=== PATIENT | female | born 1965 | race Caucasian/White ===

== ENCOUNTER 2016-09-02 15:55 | Emergency (ER) | payer OTHER ==
[2016-09-02] MEDS ORDERED: ONDANSETRON 4 MG ORAL DISINTEGRATING TAB (S0181) As Ordered ONE (18:46)
--- NOTE | 2016-09-02 18:51 | EDDOCDS ---
Nurse's Notes [facility] Name: Lela Spivey Age: 51 yrs Sex: Female : 1965 Arrival Date: 09/02/2016 Time: 15:55 Bed TR7 Private MD: [facility] Diagnosis: Nausea and vomiting;Diarrhea, unspecified Presentation: 09/02 16:05 Presenting complaint: Patient states: vomiting and diarrhea since last night. mid abd srm pain started first. Adult Sepsis Screening: The patient does not have new or worsening altered mentation. Patient's respiratory rate is less than 22. Systolic blood pressure is greater than 100. Patient has a qSOFA score of 0- Negative Sepsis Screen. Suicide/Homicide risk assessment- the patient denies having any suicidal and/or homicidal ideations and does not present with any other emotional, behavioral or mental health complaints. 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 Transition of care: patient was not received from another setting of care. 16:05 Acuity: DHIRAJ Level 3 srm 16:05 Method Of Arrival: Walkin/Carried/Asstd srm Triage Assessment: 16:07 General: Appears in no apparent distress, Behavior is appropriate for age, cooperative. srm Pain: Pain currently is 8 out of 10 on a pain scale. Quality of pain is described as crampy. HIV screening NA for this visit Offered previously. 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 lisinopril 10 mg Oral tab 1 tab once daily 2. simvastatin 20 mg Oral tab 1 tab nightly - PMHx: Hypercholesterolemia; Hypertension; Chronic Back pain; - PSHx: right knee surgery; Hysterectomy; - Social history: Smoking status: Patient states was never smoker of tobacco. No barriers to communication noted, The patient speaks fluent Georgian, Speaks appropriately for age. - Family history: Not pertinent. - : The pt / caregiver states he / she is not on anticoagulants. Home medication list is obtained from the patient. - Exposure Risk Screening:: None identified. Screenin:50 Screening information is obtained from the patient. Fall risk: No risks identified. kr3 Assistance ADL's: requires no assistance with activities of daily living. Abuse/DV Screen: The patient / caregiver reports he/she is: not in a situation that causes fear, pain or injury. Nutritional screening: No deficits noted. Advance Directives: Currently, there is no health care proxy. home support is adequate. Assessment: 18:50 General: Appears in no apparent distress, comfortable, Behavior is cooperative. kr3 Respiratory: Respiratory effort is even, unlabored. Derm: Skin is pink, warm & dry. Vital Signs: 15:57 BP 134 / 83; Pulse 76; Resp 18 S; Temp 96.4(O); Pulse Ox 98% on R/A; Weight 95.25 kg gr2 (R); Height 5 ft. 5 in. (165.10 cm) (R); Pain 8/10; 18:44 BP 156 / 93; Pulse 70; Resp 18; Temp 98.4(TE); Pulse Ox 98% on R/A; Pain 4/10; ar3 15:57 Body Mass Index 34.95 (95.25 kg, 165.10 cm) gr2 Vitals: 15:57 Log In Time: September 02, 2016 at 15:57. gr2 ED Course: 15:56 Patient visited by Aida Durán. gr2 15:56 Patient moved to Waiting gr2 15:57 [facility] is Private Physician. gr2 15:58 Patient visited by Aida Durán. gr2 15:58 Patient moved to Pre RCE gr2 16:06 Triage Initiated srm 18:12 Nena Lang,RN is Primary Nurse. ar3 18:12 Gwen Fitzpatrick,RN is Primary Nurse. ar3 18:12 Patient moved to Triage 3 ar3 18:17 Abilio Osullivan PA is PHCP. btw 18:17 Abdirahman Dupree MD is Attending Physician. btw 18:32 Patient visited by Abilio Osullivan PA. btw 18:42 [facility] is Referral Physician. btw 18:44 Patient visited by Teresa Garcia PCA. ar3 18:49 Patient moved to TR7 ar3 18:50 No IV's were initiated during this patient's visit. No procedures done that require kr3 assistance. 18:51 The patient / caregiver is instructed regarding the plan of care and ED course. Patient kr3 has correct armband on for positive identification. Administered Medications: 18:47 Drug: Ondansetron ODT 4 mg [ondansetron 4 mg disintegrating tablet (1 tabs)] Route: PO; kr3 Order Results: There are currently no results for this order. Outcome: 18:42 Discharge ordered by Provider. btw 18:50 Discharge Assessment: patient administered narcotics - no. The following High Risk kr3 Discharge criteria are identified: None. Discharged to home ambulatory. Condition: stable. Discharge instructions given to patient, Instructed on discharge instructions, follow up and referral plans. medication usage, Demonstrated understanding of instructions, medications, Pt was receptive of discharge instructions/ teaching. Prescriptions given X 1. No special radiology studies were completed. Property sent home with patient. 18:51 Patient left the ED. kr3 Signatures: Liz Lord, RN RN Gwen BlakeRN RN kr3 Teresa Garcia, SPECIAL EDUCATION TEACHING ASSISTANT SPECIAL EDUCATION TEACHING ASSISTANT ar3 Abilio Osullivan, MONISHA PA btw Aida Durán gr2 MTDD
--- NOTE | 2016-09-02 18:51 | EDDOCDS ---
Physician Documentation [facility] Name: Lela Spivey Age: 51 yrs Sex: Female : 1965 Arrival Date: 09/02/2016 Time: 15:55 Bed TR7 Private MD: [facility] Disposition: 09/02/16 18:42 Discharged to Home/Self Care. Impression: Nausea and vomiting, Diarrhea, unspecified. - Condition is Stable. - Discharge Instructions: Viral Gastroenteritis, [id number]. - Prescriptions for ZOFRAN ODT 4 mg - dissolve 1 tablet by ORAL route 4 times per day As needed do not chew, do not swallow whole; 10 tablet. - Medication Reconciliation, Local Pharmacy Hours, Work Release Form - 1 day form. - Follow up: [facility]; When: Call to arrange an appointment; Reason: Further diagnostic work-up, Recheck today's complaints, Continuance of care. - Problem is new. - Symptoms have improved. Historical: - Allergies: SULFA (SULFONAMIDES) (Hives); Percocet (Vomit); - Home Meds: 1. lisinopril 10 mg Oral tab 1 tab once daily 2. simvastatin 20 mg Oral tab 1 tab nightly - PMHx: Hypercholesterolemia; Hypertension; Chronic Back pain; - PSHx: right knee surgery; Hysterectomy; - Social history: Smoking status: Patient states was never smoker of tobacco. No barriers to communication noted, The patient speaks fluent Nauruan, Speaks appropriately for age. - Family history: Not pertinent. - : The pt / caregiver states he / she is not on anticoagulants. Home medication list is obtained from the patient. - Exposure Risk Screening:: None identified. 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 5 in. (165.10 cm) (R); Pain 8/10; 18:44 BP 156 / 93; Pulse 70; Resp 18; Temp 98.4(TE); Pulse Ox 98% on R/A; Pain 4/10; ar3 15:57 Body Mass Index 34.95 (95.25 kg, 165.10 cm) gr2 MDM: 18:42 Ondansetron ODT Oral Disintegrating Tablet 4 mg PO once ordered. btw Administered Medications: 18:47 Drug: Ondansetron ODT 4 mg [ondansetron 4 mg disintegrating tablet (1 tabs)] Route: PO; kr3 Signatures: Liz Lord RN RN srm Gwen Fitzpatrick RN RN kr3 Abilio Osullivan PA PA btw MTDD
--- NOTE | 2016-09-04 19:51 | EDDOCDS ---
Physician Documentation [facility] Name: Lela Spivey Age: 51 yrs Sex: Female : 1965 Arrival Date: 09/02/2016 Time: 15:55 Bed TR7 Private MD: [facility] Disposition: 09/02/16 18:42 Discharged to Home/Self Care. Impression: Nausea and vomiting, Diarrhea, unspecified. - Condition is Stable. - Discharge Instructions: Viral Gastroenteritis, [id number]. - Prescriptions for ZOFRAN ODT 4 mg - dissolve 1 tablet by ORAL route 4 times per day As needed do not chew, do not swallow whole; 10 tablet. - Medication Reconciliation, Local Pharmacy Hours, Work Release Form - 1 day form. - Follow up: [facility]; When: Call to arrange an appointment; Reason: Further diagnostic work-up, Recheck today's complaints, Continuance of care. - Problem is new. - Symptoms have improved. Historical: - Allergies: SULFA (SULFONAMIDES) (Hives); Percocet (Vomit); - Home Meds: 1. lisinopril 10 mg Oral tab 1 tab once daily 2. simvastatin 20 mg Oral tab 1 tab nightly - PMHx: Hypercholesterolemia; Hypertension; Chronic Back pain; - PSHx: right knee surgery; Hysterectomy; - Social history: Smoking status: Patient states was never smoker of tobacco. No barriers to communication noted, The patient speaks fluent Vincentian, Speaks appropriately for age. - Family history: Not pertinent. - : The pt / caregiver states he / she is not on anticoagulants. Home medication list is obtained from the patient. - Exposure Risk Screening:: None identified. 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 5 in. (165.10 cm) (R); Pain 8/10; 18:44 BP 156 / 93; Pulse 70; Resp 18; Temp 98.4(TE); Pulse Ox 98% on R/A; Pain 4/10; ar3 15:57 Body Mass Index 34.95 (95.25 kg, 165.10 cm) gr2 MDM: 18:42 Ondansetron ODT Oral Disintegrating Tablet 4 mg PO once ordered. btw 18:56 [facility] Payment Agreement was scanned into [employer] and attached to record. gjb 18:56 Financial registration complete. [facility] 09/03 10:19 T-Sheet-- Draft Copy was scanned into [employer] and attached to record. gb Administered Medications: 09/02 18:47 Drug: Ondansetron ODT 4 mg [ondansetron 4 mg disintegrating tablet (1 tabs)] Route: PO; kr3 Signatures: Liz Lord, RN RN srm Ambreen Moran, Gwen Tobin RN RN kr3 Abilio Osullivan PA PA btw Ashleigh Parker The chart was reviewed and I authenticate all verbal orders and agree with the evaluation and treatment provided.Attachments: 18:56 [facility] Payment Agreement [facility] 09/03 10:19 T-Sheet-- Draft Copy gb Chart Complete MTDD
--- NOTE | 2016-09-04 19:51 | EDDOCDS ---
Nurse's Notes [facility] Name: Lela Spivey Age: 51 yrs Sex: Female : 1965 Arrival Date: 09/02/2016 Time: 15:55 Bed TR7 Private MD: [facility] Diagnosis: Nausea and vomiting;Diarrhea, unspecified Presentation: 09/02 16:05 Presenting complaint: Patient states: vomiting and diarrhea since last night. mid abd srm pain started first. Adult Sepsis Screening: The patient does not have new or worsening altered mentation. Patient's respiratory rate is less than 22. Systolic blood pressure is greater than 100. Patient has a qSOFA score of 0- Negative Sepsis Screen. Suicide/Homicide risk assessment- the patient denies having any suicidal and/or homicidal ideations and does not present with any other emotional, behavioral or mental health complaints. 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 Transition of care: patient was not received from another setting of care. 16:05 Acuity: DHIRAJ Level 3 srm 16:05 Method Of Arrival: Walkin/Carried/Asstd srm Triage Assessment: 16:07 General: Appears in no apparent distress, Behavior is appropriate for age, cooperative. srm Pain: Pain currently is 8 out of 10 on a pain scale. Quality of pain is described as crampy. HIV screening NA for this visit Offered previously. 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 lisinopril 10 mg Oral tab 1 tab once daily 2. simvastatin 20 mg Oral tab 1 tab nightly - PMHx: Hypercholesterolemia; Hypertension; Chronic Back pain; - PSHx: right knee surgery; Hysterectomy; - Social history: Smoking status: Patient states was never smoker of tobacco. No barriers to communication noted, The patient speaks fluent Paraguayan, Speaks appropriately for age. - Family history: Not pertinent. - : The pt / caregiver states he / she is not on anticoagulants. Home medication list is obtained from the patient. - Exposure Risk Screening:: None identified. Screenin:50 Screening information is obtained from the patient. Fall risk: No risks identified. kr3 Assistance ADL's: requires no assistance with activities of daily living. Abuse/DV Screen: The patient / caregiver reports he/she is: not in a situation that causes fear, pain or injury. Nutritional screening: No deficits noted. Advance Directives: Currently, there is no health care proxy. home support is adequate. Assessment: 18:50 General: Appears in no apparent distress, comfortable, Behavior is cooperative. kr3 Respiratory: Respiratory effort is even, unlabored. Derm: Skin is pink, warm & dry. Vital Signs: 15:57 BP 134 / 83; Pulse 76; Resp 18 S; Temp 96.4(O); Pulse Ox 98% on R/A; Weight 95.25 kg gr2 (R); Height 5 ft. 5 in. (165.10 cm) (R); Pain 8/10; 18:44 BP 156 / 93; Pulse 70; Resp 18; Temp 98.4(TE); Pulse Ox 98% on R/A; Pain 4/10; ar3 15:57 Body Mass Index 34.95 (95.25 kg, 165.10 cm) gr2 Vitals: 15:57 Log In Time: September 02, 2016 at 15:57. gr2 ED Course: 15:56 Patient visited by Aida Durán. gr2 15:56 Patient moved to Waiting gr2 15:57 [facility] is Private Physician. gr2 15:58 Patient visited by Aida Durán. gr2 15:58 Patient moved to Pre RCE gr2 16:06 Triage Initiated srm 18:12 Nena Lang,RN is Primary Nurse. ar3 18:12 Gwen Fitzpatrick,RN is Primary Nurse. ar3 18:12 Patient moved to Triage 3 ar3 18:17 Abilio Osullivan PA is PHCP. btw 18:17 Abdirahman Dupree MD is Attending Physician. btw 18:32 Patient visited by Abilio Osullivan PA. btw 18:42 [facility] is Referral Physician. btw 18:44 Patient visited by Teresa Garcia PCA. ar3 18:49 Patient moved to TR7 ar3 18:50 No IV's were initiated during this patient's visit. No procedures done that require kr3 assistance. 18:51 The patient / caregiver is instructed regarding the plan of care and ED course. Patient kr3 has correct armband on for positive identification. 18:56 [facility] Payment Agreement was scanned into [employer] and attached to record. lizzie 09/03 10:19 T-Sheet-- Draft Copy was scanned into [employer] and attached to record. gb Administered Medications: 09/02 18:47 Drug: Ondansetron ODT 4 mg [ondansetron 4 mg disintegrating tablet (1 tabs)] Route: PO; kr3 Order Results: There are currently no results for this order. Outcome: 18:42 Discharge ordered by Provider. btw 18:50 Discharge Assessment: patient administered narcotics - no. The following High Risk kr3 Discharge criteria are identified: None. Discharged to home ambulatory. Condition: stable. Discharge instructions given to patient, Instructed on discharge instructions, follow up and referral plans. medication usage, Demonstrated understanding of instructions, medications, Pt was receptive of discharge instructions/ teaching. Prescriptions given X 1. No special radiology studies were completed. Property sent home with patient. 18:51 Patient left the ED. kr3 Signatures: Liz Lord, RN RN [facility] Ambreen Moran, Reg Reg gb Gwen Fitzpatrick RN RN kr3 Teresa Garcia, CHAMPAGNE MAKER CHAMPAGNE MAKER ar3 Abilio Osullivan, MONISHA PA btw Aida Durán gr2 Ashleigh Parker [facility] Chart Complete MTDD
--- NOTE | 2016-09-04 19:51 | EDDOCDS ---
Physician Documentation [facility] Name: Lela Spivey Age: 51 yrs Sex: Female : 1965 Arrival Date: 09/02/2016 Time: 15:55 Bed TR7 Private MD: [facility] Disposition: 09/02/16 18:42 Discharged to Home/Self Care. Impression: Nausea and vomiting, Diarrhea, unspecified. - Condition is Stable. - Discharge Instructions: Viral Gastroenteritis, [id number]. - Prescriptions for ZOFRAN ODT 4 mg - dissolve 1 tablet by ORAL route 4 times per day As needed do not chew, do not swallow whole; 10 tablet. - Medication Reconciliation, Local Pharmacy Hours, Work Release Form - 1 day form. - Follow up: [facility]; When: Call to arrange an appointment; Reason: Further diagnostic work-up, Recheck today's complaints, Continuance of care. - Problem is new. - Symptoms have improved. Historical: - Allergies: SULFA (SULFONAMIDES) (Hives); Percocet (Vomit); - Home Meds: 1. lisinopril 10 mg Oral tab 1 tab once daily 2. simvastatin 20 mg Oral tab 1 tab nightly - PMHx: Hypercholesterolemia; Hypertension; Chronic Back pain; - PSHx: right knee surgery; Hysterectomy; - Social history: Smoking status: Patient states was never smoker of tobacco. No barriers to communication noted, The patient speaks fluent Ugandan, Speaks appropriately for age. - Family history: Not pertinent. - : The pt / caregiver states he / she is not on anticoagulants. Home medication list is obtained from the patient. - Exposure Risk Screening:: None identified. 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 5 in. (165.10 cm) (R); Pain 8/10; 18:44 BP 156 / 93; Pulse 70; Resp 18; Temp 98.4(TE); Pulse Ox 98% on R/A; Pain 4/10; ar3 15:57 Body Mass Index 34.95 (95.25 kg, 165.10 cm) gr2 MDM: 18:42 Ondansetron ODT Oral Disintegrating Tablet 4 mg PO once ordered. btw 18:56 [facility] Payment Agreement was scanned into [employer] and attached to record. gjb 18:56 Financial registration complete. [facility] 09/03 10:19 T-Sheet-- Draft Copy was scanned into [employer] and attached to record. gb Administered Medications: 09/02 18:47 Drug: Ondansetron ODT 4 mg [ondansetron 4 mg disintegrating tablet (1 tabs)] Route: PO; kr3 Signatures: Liz Lord, RN RN srm Ambreen Moran, Gwen Tobin RN RN kr3 Abilio Osullivan PA PA btw Ashleigh Parker The chart was reviewed and I authenticate all verbal orders and agree with the evaluation and treatment provided.Attachments: 18:56 [facility] Payment Agreement [facility] 09/03 10:19 T-Sheet-- Draft Copy gb Chart Complete MTDD
== END 2016-09-02 18:51 | disposition home or self-care (01) ==
LOC: M ED 15:55
DX: R11.2 Nausea with vomiting, unspecified (principal); R19.7 Diarrhea, unspecified; I10 Essential (primary) hypertension; M54.9 Dorsalgia, unspecified; E78.00 Pure hypercholesterolemia, unspecified; Z79.899 Other long term (current) drug therapy; Z88.2 Allergy status to sulfonamides; Z88.5 Allergy status to narcotic agent

== ENCOUNTER → 2016-10-21 | Outpatient (CLI) | payer OTHER ==
--- NOTE | 2016-10-21 10:58 | REP ---
Cervical spine eight views: Vertebral body heights, interspacing alignment are normal. The prevertebral soft tissues are normal. There is no listhesis on flexion or extension. The facets are normally aligned. There is no bony foraminal encroachment. The odontoid view is unremarkable. Impression: Essentially negative plain film study of the cervical spine. Signed by Perez Pelaez MD 10/21/2016 10:49 A
--- NOTE | 2016-10-21 10:59 | REP ---
Lumbar spine five views: There are no comparisons. Vertebral body heights and alignment are normal. There is moderate degenerative disc disease at every lumbar level. The facets and pedicles are unremarkable. Sacroiliac articulations are unremarkable. Impression: Multilevel moderate degenerative disc disease. Signed by Perez Pelaez MD 10/21/2016 10:50 A
== END ==
LOC: M WUC 10:06
PROVIDERS: ATTEND Physician Assistant
DX: M51.35 Other intervertebral disc degeneration, thoracolumbar region (principal); M51.36 Other intervertebral disc degeneration, lumbar region; M51.37 Other intervertebral disc degeneration, lumbosacral region

== ENCOUNTER → 2017-04-08 | Outpatient (CLI) | payer OTHER ==
[2017-04-08 15:31] LABS: ALBUMIN 3.4 GM/DL (3.2-5.2); ALBUMIN/GLOBULIN RATIO 0.97 (1.00-1.93); ALKALINE PHOSPHATASE 114 U/L (45-117); ALT/SGPT 50 U/L (12-78); ANION GAP 7 MEQ/L (8-16); AST/SGOT 20 U/L (15-37); BILIRUBIN,TOTAL 0.7 MG/DL (0.2-1.0); BLOOD UREA NITROGEN 13 MG/DL (7-18); CALCIUM LEVEL 8.5 MG/DL (8.5-10.1); CARBON DIOXIDE LEVEL 28 MEQ/L (21-32); CHLORIDE LEVEL 104 MEQ/L (98-107); CHOLESTEROL LEVEL 158 MG/DL (<200); CREATININE FOR GFR 0.51 MG/DL (0.55-1.02); GLOMERULAR FILTRATION RATE > 60.0 (>51); GLUCOSE, FASTING 270 MG/DL (70-105); POTASSIUM SERUM 4.1 MEQ/L (3.5-5.1); SODIUM LEVEL 139 MEQ/L (136-145); TOTAL PROTEIN 6.9 GM/DL (6.4-8.2); TRIGLYCERIDES LEVEL 134 MG/DL (<150)
[2017-04-08 18:22] LABS: BASO % 0.5 % (0.0-1.0); EOS # 0.2 K/mm3 (0.0-0.50); EOS % 3.4 % (0.0-3.0); LARGE UNSTAINED CELL # 0.2 K/mm3 (0.0-0.4); LARGE UNSTAINED CELL % 2.2 % (0.0-4.0); LYMPH # 2.5 K/mm3 (1.5-4.5); LYMPH % 34.3 % (24.0-44.0); MEAN CORPUSCULAR HEMOGLOBIN 32.7 pg (27.0-33.0); MEAN CORPUSCULAR HGB CONC 36.4 g/dl (32.0-36.5); MEAN CORPUSCULAR VOLUME 89.8 fl (80.0-96.0); MONO # 0.3 K/mm3 (0.0-0.8); MONO % 4.3 % (0.0-5.0); NEUTROPHILS % 55.2 % (36.0-66.0); PLATELET COUNT, AUTOMATED 237 k/mm3 (150-450); WHITE BLOOD COUNT 7.2 K/mm3 (4.0-10.0)
== END ==
LOC: M LAB 12:21
PROVIDERS: ATTEND Physician Assistant Medical
DX: I10 Essential (primary) hypertension (principal); E78.5 Hyperlipidemia, unspecified; Z83.3 Family history of diabetes mellitus

== ENCOUNTER 2017-08-30 23:25 | Emergency (ER) | payer OTHER ==
[2017-08-31] MEDS: NORCO, ANEXSIA 5/325MG TABLET (HYDROcodone/ACETAMINOPHEN) PO (01:08)
[2017-08-31] MEDS: METHOCARBAMOL 500 MG TAB PO (01:08)
[2017-08-31] MEDS: IBUPROFEN 800 MG TAB PO (01:08)
== END 2017-08-31 01:29 | disposition home or self-care (01) ==
LOC: M ED 23:25
DX: S76.311A Strain of muscle, fascia and tendon of the posterior muscle group at thigh level, right thigh, initial encounter (principal); X50.9XXA Other and unspecified overexertion or strenuous movements or postures, initial encounter; Y92.59 Other trade areas as the place of occurrence of the external cause; Y99.0 Civilian activity done for income or pay; I10 Essential (primary) hypertension; E78.9 Disorder of lipoprotein metabolism, unspecified; K21.9 Gastro-esophageal reflux disease without esophagitis; Z88.1 Allergy status to other antibiotic agents; Z88.2 Allergy status to sulfonamides; Z79.899 Other long term (current) drug therapy; Z98.890 Other specified postprocedural states
CPT/HCPCS: 99282

== ENCOUNTER 2018-01-07 08:06 | Emergency (ER) | payer SELFPAY, OTHER ==
[2018-01-07] MEDS: KETOROLAC 60 MG/2 ML VIAL (J1885) IM (08:37)
[2018-01-07] MEDS: METHOCARBAMOL 500 MG TAB PO (08:37)
== END 2018-01-07 09:12 | disposition home or self-care (01) ==
LOC: M ED 08:06
DX: M62.830 Muscle spasm of back (principal); M54.30 Sciatica, unspecified side; I10 Essential (primary) hypertension; J45.909 Unspecified asthma, uncomplicated; K21.9 Gastro-esophageal reflux disease without esophagitis; Z79.899 Other long term (current) drug therapy; Z88.5 Allergy status to narcotic agent; Z88.2 Allergy status to sulfonamides
CPT/HCPCS: J1885

== ENCOUNTER 2018-04-22 09:39 | Emergency (ER) | payer SELFPAY, OTHER ==
[2018-04-22] MEDS: NORCO, ANEXSIA 5/325MG TABLET (HYDROcodone/ACETAMINOPHEN) PO (10:57)
== END 2018-04-22 12:07 | disposition home or self-care (01) ==
LOC: M ED 09:39
DX: S76.111A Strain of right quadriceps muscle, fascia and tendon, initial encounter (principal); X58.XXXA Exposure to other specified factors, initial encounter; Y92.89 Other specified places as the place of occurrence of the external cause; I10 Essential (primary) hypertension; E78.5 Hyperlipidemia, unspecified; Z79.899 Other long term (current) drug therapy; Z88.1 Allergy status to other antibiotic agents; Z88.2 Allergy status to sulfonamides; Z88.5 Allergy status to narcotic agent
CPT/HCPCS: 93971

== ENCOUNTER 2018-07-17 21:22 | Emergency (ER) | payer BC, SELFPAY ==
[~2018-07-17] VITALS: Ht 165.1 cm; Wt 90.9 kg
[~2018-07-17 21:22] MED LIST: AMLO5TAB6 PO; CYCL5TAB PO; ESOM1CAP5 PO; LISI-542 PO; LISI2.5T76 GT; NAPR-885 PO; NEXI10GR PO; NORCOTAB PO; SIMV20TA2 PO; SIMV40TA2 PO; VENTAER INH
[2018-07-17] MEDS ORDERED: LABETALOL HCL 100 MG/20 ML VIAL IV STA (21:47)
[2018-07-17] MEDS ORDERED: NS 1,000 ML IV SCH (21:47)
[2018-07-17] MEDS ORDERED: hydroCHLOROthiazide 12.5 MG CAPSULE PO ONE (22:00)
--- NOTE | 2018-07-17 22:10 | REPVR ---
EXAM: CT Head Without Contrast EXAM DATE/TIME: 07/17/2018 9:56 PM CLINICAL HISTORY: 53 years old, female; Signs and symptoms; Other: CVA; Additional info: CVA - nursing interventions must not delay CT TECHNIQUE: Axial computed tomography images of the head/brain without contrast. All CT scans at this facility use at least one of these dose optimization techniques: automated exposure control; mA and/or kV adjustment per patient size (includes targeted exams where dose is matched to clinical indication); or iterative reconstruction. STROKE PROTOCOL was implemented. COMPARISON: No relevant prior studies available. FINDINGS: Brain: No acute intracranial hemorrhage. No CT evidence of acute cortical infarct. No intracranial mass or midline shift. Ventricles, cisterns, and sulci are normal in size for age. Bones/joints: No calvarial fracture or destructive process. Sinuses: Mucosal thickening or fluid is present diffusely in the paranasal sinuses. Mastoid air cells: Mastoid air cells are normally aerated. Orbits: Imaged orbits are unremarkable. Soft tissues: No focal extracranial soft tissue swelling. IMPRESSION: No acute or concerning focal intracranial abnormality. Electronically signed by: Taran Isaac On 07/17/2018 22:10:22 PM
--- NOTE | 2018-07-17 22:26 | REPVR ---
EXAM: CT Maxillofacial Without Contrast EXAM DATE/TIME: 07/17/2018 9:56 PM CLINICAL HISTORY: 53 years old, female; Signs and symptoms; Other: CVA; Additional info: CVA - nursing interventions must not delay CT TECHNIQUE: Axial computed tomography images of the face without intravenous contrast. All CT scans at this facility use at least one of these dose optimization techniques: automated exposure control; mA and/or kV adjustment per patient size (includes targeted exams where dose is matched to clinical indication); or iterative reconstruction. Coronal and sagittal reformatted images were created and reviewed. COMPARISON: No relevant prior studies available. FINDINGS: Ostiomeatal complexes are bilaterally occluded or obscured by mucosal thickening. Mucosal thickening and fluid is present diffusely in the paranasal sinuses. Air-fluid levels are present in the maxillary sinuses. No bony sclerosis present to indicate chronic sinusitis. Nasal septum shows no marked spurring. No jodi bullosa deformity. No soft tissue asymmetry of the posterior nasopharynx. No bony destructive process. IMPRESSION: Diffuse opacification of the paranasal sinuses, suggesting inflammatory sinusitis. No osseous destruction or evidence of overlying facial cellulitis or abscess. Electronically signed by: Taran Isaac On 07/17/2018 22:26:22 PM
[2018-07-17 22:32] LABS: BASO # 0.1 10^3/uL (0.0-0.2); BASO % 0.4 % (0.0-1.0); EOS # 0.1 10^3/uL (0.0-0.50); HEMATOCRIT 46.4 % (36.0-47.0); HEMOGLOBIN 16.7 g/dl (12.0-15.5); LYMPH # 3.1 10^3/uL (1.5-4.5); LYMPH % 27.3 % (24.0-44.0); MEAN CORPUSCULAR VOLUME 86.1 fl (80.0-96.0); MONO # 0.8 10^3/uL (0.0-0.8); MONO % 6.7 % (0.0-5.0); NEUTROPHILS # 7.3 10^3/uL (1.8-7.7); NEUTROPHILS % 64.2 % (36.0-66.0); PLATELET COUNT, AUTOMATED 304 10^3/uL (150-450); RED BLOOD COUNT 5.39 10^6/uL (4.00-5.40); WHITE BLOOD COUNT 11.4 10^3/uL (4.0-10.0)
[2018-07-17 22:34] VITALS: BP 240/151
[2018-07-17 22:46] LABS: INR 0.99; PROTHROMBIN TIME 13.2 SECONDS (12.1-14.4)
[2018-07-17 22:47] LABS: PARTIAL THROMBOPLASTIN TIME 28.3 SECONDS (25.4-37.6)
[2018-07-17 23:06] LABS: ALBUMIN 3.6 GM/DL (3.2-5.2); ALT/SGPT 39 U/L (12-78); BILIRUBIN,DIRECT 0.1 MG/DL (0.0-0.2); BILIRUBIN,TOTAL 0.5 MG/DL (0.2-1.0); BLOOD UREA NITROGEN 15 MG/DL (7-18); CALCIUM LEVEL 9.3 MG/DL (8.5-10.1); CARBON DIOXIDE LEVEL 26 MEQ/L (21-32); CHLORIDE LEVEL 97 MEQ/L (98-107); CPK CREATINE PHOSPHOKINASE 87 U/L (26-192); GLOMERULAR FILTRATION RATE > 60.0 (>51); GLUCOSE, FASTING 500 MG/DL (70-100); MB/CK RELATIVE INDEX 2.53 (< OR =4); POTASSIUM SERUM 4.5 MEQ/L (3.5-5.1); SODIUM LEVEL 132 MEQ/L (136-145); TOTAL PROTEIN 7.9 GM/DL (6.4-8.2); TROPONIN I < 0.02 NG/ML (< 0.10)
[2018-07-17] MEDS ORDERED: AUGMENTIN 875 MG TAB PO ONE (23:15)
[2018-07-17] MEDS ORDERED: HumuLIN R (REGULAR) INSULIN (NovoLIN R) **100U/ML** PER UNIT IV ONE (23:15)
[2018-07-17] MEDS ORDERED: LISI10TA2 PO (23:18)
[2018-07-17] MEDS ORDERED: AUGM875T28 PO (23:20)
[2018-07-18] MEDS ORDERED: ONDANSETRON 4MG/2ML VIAL (J2405) IV ONE (01:30)
[2018-07-18] MEDS ORDERED: ZOFR4TAB14 PO (01:54)
[2018-07-18] MEDS ORDERED: METF500T13 PO (01:54)
[2018-07-18 02:11] VITALS: BP 137/76
[2018-07-19] MEDS ORDERED: CYCL5TAB PO (23:27)
[2018-07-19] MEDS ORDERED: LISI10TA2 PO (23:27)
[2018-07-19] MEDS ORDERED: AUGM875T28 PO (23:27)
[2018-07-19] MEDS ORDERED: METF500T13 PO (23:27)
[2018-07-19] MEDS ORDERED: NEXI40CA PO (23:27)
[2018-07-19] MEDS ORDERED: HYDR1CRE2 EXT (23:27)
[2018-07-19] MEDS ORDERED: SIMV20TA2 PO (23:27)
[2018-07-19] MEDS ORDERED: TYLE325T5 PO (23:27)
[2018-07-19] MEDS ORDERED: ZOFR4TAB14 PO (23:27)
== END 2018-07-18 02:24 | disposition home or self-care (01) ==
LOC: M ED 21:22
DX: E11.65 Type 2 diabetes mellitus with hyperglycemia (principal); J01.90 Acute sinusitis, unspecified; R51 Headache; I10 Essential (primary) hypertension; Z79.4 Long term (current) use of insulin; Z79.899 Other long term (current) drug therapy; Z91.040 Latex allergy status; Z88.5 Allergy status to narcotic agent; Z88.2 Allergy status to sulfonamides
CPT/HCPCS: 70450; 70486; 80048; 80076; 82550; 82553; 84484; 85025; 85610; 85730; 96374; 96375; 99284; J2405

== ENCOUNTER 2018-07-19 20:21 | Inpatient (IN) | payer BC, SELFPAY ==
[~2018-07-19] VITALS: Ht 165.1 cm; Wt 90.6 kg
[~2018-07-19 20:21] MED LIST changes: +AMLO5TAB4 PO; -AMLO5TAB6 PO; +AUGM875T28 PO; +LISI10TA2 PO; +METF500T13 PO; +ZOFR4TAB14 PO
[2018-07-19] MEDS ORDERED: NS 1,000 ML IV ONE (20:45)
[2018-07-19] MEDS ORDERED: HumuLIN R (REGULAR) INSULIN (NovoLIN R) **100U/ML** PER UNIT IV ONE (20:45)
[2018-07-19] MEDS ORDERED: ACETAMINOPHEN 325 MG TAB PO ONE (20:45)
[2018-07-19] MEDS ORDERED: ONDANSETRON 4MG/2ML VIAL (J2405) IV ONE (20:45)
[2018-07-19 21:14] LABS: VENOUS BASE EXCESS -1.6 (-2.0-2.0); VENOUS HCO3 22.3 MEQ/L (23.0-27.0); VENOUS O2 SATURATION 94.3 % (60.0-80.0); VENOUS TOTAL CO2 23.4 MEQ/L (24.0-28.0)
[2018-07-19 21:23] LABS: BASO % 0.3 % (0.0-1.0); EOS % 0.3 % (0.0-3.0); HEMATOCRIT 46.6 % (36.0-47.0); HEMOGLOBIN 16.5 g/dl (12.0-15.5); LYMPH # 3.3 10^3/uL (1.5-4.5); MEAN CORPUSCULAR HEMOGLOBIN 30.3 pg (27.0-33.0); MEAN CORPUSCULAR HGB CONC 35.4 g/dl (32.0-36.5); MEAN CORPUSCULAR VOLUME 85.7 fl (80.0-96.0); MONO % 7.4 % (0.0-5.0); NEUTROPHILS # 8.8 10^3/uL (1.8-7.7); NEUTROPHILS % 66.5 % (36.0-66.0); PLATELET COUNT, AUTOMATED 417 10^3/uL (150-450); RED BLOOD COUNT 5.44 10^6/uL (4.00-5.40); WHITE BLOOD COUNT 13.2 10^3/uL (4.0-10.0)
[2018-07-19 21:27] LABS: APPEARANCE, URINE CLEAR (CLEAR); BACTERIA, URINE AUTO NEGATIVE (NEGATIVE); BILIRUBIN, URINE AUTO NEGATIVE (NEGATIVE); BLOOD, URINE BLOOD NEGATIVE (NEGATIVE); COLOR, URINE STRAW (YELLOW); GLUCOSE, URINE (UA) AUTO 3+ mg/dL (NEGATIVE); KETONE, URINE AUTO 1+ mg/dL (NEGATIVE); LEUKOCYTE ESTERASE, URINE AUTO NEGATIVE (NEGATIVE); MUCUS, URINE SMALL (NEGATIVE); NITRITE, URINE AUTO NEGATIVE (NEGATIVE); PROTEIN, URINE AUTO NEGATIVE (NEGATIVE); RBC, URINE AUTO 2 /HPF (0-3); SPECIFIC GRAVITY URINE AUTO 1.033 (1.002-1.035); SQUAMOUS EPITHELIAL CELL UR AU 1 /HPF (0-6); UROBILINOGEN, URINE AUTO 0.2 mg/dL (0.0-2.0); WBC, URINE AUTO 2 /HPF (0-3)
[2018-07-19 21:32] LABS: HEMOGLOBIN A1c 12.7 %
[2018-07-19 22:02] LABS: ACETONE/KETONE 16.32 MG/DL (<2.81); BLOOD UREA NITROGEN 24 MG/DL (7-18); CARBON DIOXIDE LEVEL 22 MEQ/L (21-32); CHLORIDE LEVEL 94 MEQ/L (98-107); CREATININE FOR GFR 0.81 MG/DL (0.55-1.30); GLOMERULAR FILTRATION RATE > 60.0 (>51); GLUCOSE, FASTING 571 MG/DL (70-100); POTASSIUM SERUM 4.3 MEQ/L (3.5-5.1); SODIUM LEVEL 130 MEQ/L (136-145)
[2018-07-19] MEDS ORDERED: SIMV20TA2 PO (23:27)
[2018-07-19] MEDS ORDERED: METF500T13 PO (23:27)
[2018-07-19] MEDS ORDERED: TYLE325T5 PO (23:27)
[2018-07-19] MEDS ORDERED: LISI10TA2 PO (23:27)
[2018-07-19] MEDS ORDERED: NEXI40CA PO (23:27)
[2018-07-19] MEDS ORDERED: AUGM875T28 PO (23:27)
[2018-07-19] MEDS ORDERED: ZOFR4TAB14 PO (23:27)
[2018-07-19] MEDS ORDERED: CYCL5TAB PO (23:27)
[2018-07-19] MEDS ORDERED: HYDR1CRE2 EXT (23:27)
[2018-07-19] MEDS ORDERED: CYCLOBENZAPRINE 5MG TABLET PO PRN (23:45)
--- NOTE | 2018-07-19 23:54 | REPVR ---
EXAM: CT Head Without Contrast EXAM DATE/TIME: 07/19/2018 11:28 PM CLINICAL HISTORY: 53 years old, female; Pain; Headache; Headache not specified TECHNIQUE: Axial computed tomography images of the head/brain without contrast. All CT scans at this facility use at least one of these dose optimization techniques: automated exposure control; mA and/or kV adjustment per patient size (includes targeted exams where dose is matched to clinical indication); or iterative reconstruction. COMPARISON: No relevant prior studies available. FINDINGS: Brain: Normal. No hemorrhage. No significant white matter disease. No edema. Ventricles: Normal. No ventriculomegaly. Bones/joints: Normal. No acute fracture. Sinuses: Mild ethmoid sinusitis bilaterally. Mastoid air cells: Normal as visualized. No mastoid effusion. Soft tissues: Normal. IMPRESSION: No acute intracranial findings. Electronically signed by: Derrick Brar On 07/19/2018 23:53:54 PM
[2018-07-20] VITALS (7 sets, daily range): BP systolic 111–147; BP diastolic 62–85
[2018-07-20] MEDS ORDERED: ACETAMINOPHEN TAB 650MG DOSE (2X325MG) PO PRN
[2018-07-20] MEDS ORDERED: IPRATROPIUM 0.5MG/ALBUTEROL 2.5MG INH SOL UD 3ML (DUONEB)(J7620) NEB PRN
--- NOTE | 2018-07-20 00:31 | HPEPDOC ---
[facility] Medical History & Physical Date of Admission Jul 20, 2018 Attending Physician: YNES PEREZ MD History and Physical CHIEF COMPLAINT: [Headache, nausea, vomiting] HISTORY OF PRESENT ILLNESS: [53-year-old female was in a few past medical history hypertension, hyperlipidemia, asthma, sciatica, who is coming in complaining of headache, nausea and vomiting. Patient was recently seen in the ER 3 days ago diagnosed with sinusitis, hypertension, diabetes and was discharged on Augmentin, lisinopril plus hydrochlorothiazide combination drugs, and metformin. Patient came in today because her symptoms worsen today. Patient states that when she bends her headache is worse pain right underneath the eye, associated with dizziness, nausea, vomiting, increased urination and increased thirst. Patient denies of any fever. Patient denies of any diarrhea, dysuria, or other complaints. No coughing, fever, or sputum production. Patient has a history of heavy soda consumption. Patient states that she has not seen her physician for a long time but states that last time she seen her PCP was roughly a year ago. Patient denies smoking, drinking, or drug abuse. Patient was evaluated in the emergency room noted to have elevated glucose, osmolality, elevated hemoglobin A1c, and elevated beta hydroxybutyrate. Although patient den ies of history of diabetes patient had elevated sugar in the 200 since 2014 and in March 2017 her hemoglobin A1c was 12. Patient is being admitted for further evaluation and treatment. Review system: 10 point review systems negative than those described in [facility] Past medical history: Hypertension, hyperlipidemia, asthma, sciatica Surgical history: Hysterectomy, knee surgery Social history: Denies of smoking, drinking, drug abuse Family medical history: Father due to MS at age 59, mother of MS at age 62 and maternal side significant for diabete ALLERGIES: Please see below. HOME MEDICATIONS: Please see below. PHYSICAL EXAMINATION: VITAL SIGNS: Please see below GENERAL APPEARANCE: Resting comfortably with complaint of headache HEENT: Normocephalic, PERRLA, Mucous moist, CARDIOVASCULAR: S1,S2, pulse present, regularly, regular, no obvious murmur LUNGS: Equal air entry b/l, no wheezes or crackle ABDOMEN: Soft, BS present, no tenderness, no guarding GENITOURINARY: No Elise EXTREMITIES: B/L no edema, capillary refill present SKIN: Warm, No fever NEUROLOGICAL: Cranial nerves grossly intact PSYCHIATRIC: Normal mood and affect for current situation, family at the bedside LABORATORY DATA: See below. IMAGING: [CT head: No acute intracranial findings.] MICROBIOLOGY: Please see below. Assessment and plan: 53-year-old female was in a few past medical history hypertension, hyperlipidemia, asthma, sciatica, who is coming in complaining of headache, nausea and vomiting. DKA, denial about her diagnosis of diabetes (states that she has not been diagnosed with diabetes but in March 2017 her hemoglobin A1c was elevated and patient states that shes drinks soda), family history of diabetes, treat sinusitis as below -IV fluid, insulin drip and hold metformin -Frequent BMP and beta hydroxybutyrate -Nutrition consult, diabetic education -No other overt signs of infection except for sinusitis, continue to clinical monitor -Thyroid function testing Headache, sinusitis -CT of the head ordered and neg for acute process -Utilize antibiotic at this time Hypertension -Resume home regimen amlodipine, lisinopril, hold hydrochlorothiazide Hyperlipidemia -Resume home regimen statin GERD -Resume home regimen Nexium Asthma -Resume home inhalers DVT prophylaxis with heparin subcutaneous Vital Signs Vital Signs Date Time Temp Pulse Resp B/P (MAP) Pulse Ox O2 Delivery O2 Flow Rate FiO2 07/19/18 21:27 07/19/18 20:21 96.7 120 18 100 Room Air Laboratory Data Labs 24H Laboratory Tests 2 07/19/18 21:04: Immature Granulocyte % (Auto) 0.5, White Blood Count 13.2H, Red Blood Count 5.44H, Hemoglobin 16.5H, Hematocrit 46.6, Mean Corpuscular Volume 85.7, Mean Corpuscular Hemoglobin 30.3, Mean Corpuscular Hemoglobin Concent 35.4, Red Cell Distribution Width 11.4L, Platelet Count 417, Neutrophils (%) (Auto) 66.5H, Lymphocytes (%) (Auto) 25.0, Monocytes (%) (Auto) 7.4H, Eosinophils (%) (Auto) 0.3, Basophils (%) (Auto) 0.3, Neutrophils # (Auto) 8.8H, Lymphocytes # (Auto) 3.3, Monocytes # (Auto) 1.0H, Eosinophils # (Auto) 0.0, Basophils # (Auto) 0.0, Nucleated Red Blood Cells % (auto) 0.0, Urine Appearance CLEAR, Urine Color STRA W, Urine pH 5.0, Urine Specific [place] 1.033, Urine Protein NEGATIVE, Urine Glucose (UA) 3+H, Urine Ketones 1+H, Urine Urobilinogen 0.2, Urine Bilirubin NEGATIVE, Urine Leukocyte Esterase NEGATIVE, Urine Blood NEGATIVE, Urine Nitrite NEGATIVE, Urine WBC (Auto) 2, Urine RBC (Auto) 2, Urine Hyaline Casts (Auto) 0, Urine Bacteria (Auto) NEGATIVE, Urine Squamous Epithelial Cells 1, Urine Mucus (Auto) SMALL, Urine Sperm (Auto) , Blood Gas Bicarbonate Standard 23.0, Venous Blood pH 7.410, Venous Blood Partial Pressure CO2 36.0L, Venous Blood Partial Pressure O2 72.0H, Venous Blood Total Carbon Dioxide 23.4L, Venous Blood HCO3 22.3L, Venous Blood Oxygen Saturation 94.3H, Venous Blood Base Excess -1.6, Anion Gap 14, Glomerular Filtration Rate > 60.0, Estimated Mean Plasma Glucose 318H, Hemoglobin A1c 12.7, Blood Urea Nitrogen 24#H, Creatinine 0.81, Sodium Level 130L, Potassium Level 4.3, Chloride Level 94L, Carbon Dioxide Level 22, Calcium Level 10.0, B-Hydroxybutyrate 16.32H 07/19/18 22:12: Osmolality 312H 07/19/18 22:29: Bedside Glucose (Misc Panel) 452H CBC/BMP Laboratory Tests 07/19/18 21:04 Red Blood Count 5.44 H, Mean Corpuscular Volume 85.7, Mean Corpuscular Hemoglobin 30.3, Mean Corpuscular Hemoglobin Concent 35.4, Red Cell Distribution Width 11.4 L, Neutrophils (%) (Auto) 66.5 H, Lymphocytes (%) (Auto) 25.0, Mon ocytes (%) (Auto) 7.4 H, Eosinophils (%) (Auto) 0.3, Basophils (%) (Auto) 0.3, Neutrophils # (Auto) 8.8 H, Lymphocytes # (Auto) 3.3, Monocytes # (Auto) 1.0 H, Eosinophils # (Auto) 0.0, Basophils # (Auto) 0.0, Calcium Level 10.0 Home Medications Scheduled (Lisinopril/Hydrochlorothi 10-12.5 mg) 1 Tab Tab, 1 TAB PO DAILY Amlodipine Besylate (Amlodipine Besylate) 5 Mg Tab, 5 MG PO QHS Amoxicillin/Clavulanate Potas (Augmentin 875-125 mg) 1 Tab Tab, 875 MG PO BID Esomeprazole Magnesium Trihydr (Nexium) 40 Mg Cap, 40 MG PO DAILY Hydrocortisone (Hydrocortisone) 1 % Cre, 1 DOSE EXT DAILY USES ON HANDS AFTER TAKING SHOWER Metformin Hydrochloride (Metformin HCl) 500 Mg Tab, 500 MG PO BID Simvastatin (Simvastatin) 20 Mg Tab, 20 MG PO QHS Scheduled PRN Acetaminophen (Tylenol) 325 Mg Tab, 650 MG PO Q4H PRN for PAIN / FEVER Albuterol Sulfate (Ventolin Hfa) 108 Mcg/Act Aer, 2 PUFFS INH Q4H PRN for SHORTNESS OF BREATH Cyclobenzaprine HCl (Cyclobenzaprine HCl) 5 Mg Tab, 5 MG PO TID PRN for MUSCLE SPASMS Ondansetron (Zofran Odt) 4 Mg Tab, 4 MG PO Q4H PRN for NAUSEA Allergies Coded Allergies: Sulfa Antibiotics (Verified Allergy, Intermediate, rash, 08/31/17) Oxycodone (Verified Adverse Reaction, Mild, Nausea/Vomiting, 01/07/18) GARY MAHER MD Jul 20, 2018 00:31
[2018-07-20] MEDS: NS 1,000 ML IV SCH ×2 (00:35→04:57)
[2018-07-20] MEDS ORDERED: INSULIN HUMAN REGULAR 100 UNITS in NS 99 ML IV SCH ×2 (01:15→13:15)
[2018-07-20 01:23] LABS: ACETONE/KETONE 12.55 MG/DL (<2.81); BLOOD UREA NITROGEN 26 MG/DL (7-18); CALCIUM LEVEL 9.7 MG/DL (8.5-10.1); CARBON DIOXIDE LEVEL 26 MEQ/L (21-32); CHLORIDE LEVEL 99 MEQ/L (98-107); CPK CREATINE PHOSPHOKINASE 56 U/L (26-192); CREATININE FOR GFR 0.69 MG/DL (0.55-1.30); GLOMERULAR FILTRATION RATE > 60.0 (>51); GLUCOSE, FASTING 377 MG/DL (70-100); MB/CK RELATIVE INDEX 3.04 (< OR =4); POTASSIUM SERUM 4.4 MEQ/L (3.5-5.1); SODIUM LEVEL 135 MEQ/L (136-145); TROPONIN I < 0.02 NG/ML (< 0.10)
[2018-07-20] MEDS ORDERED: GLUCOSE 4 GM CHEW TABLET PO PRN (01:30)
[2018-07-20] MEDS ORDERED: DEXTROSE 50% 50 ML SYRINGE IV PRN (01:30)
[2018-07-20] MEDS ORDERED: GLUCAGON FOR INJ 1 MG VIAL (J1610) SC PRN (01:30)
[2018-07-20 03:02] LABS: ACETONE/KETONE 12.45 MG/DL (<2.81); BLOOD UREA NITROGEN 25 MG/DL (7-18); CALCIUM LEVEL 9.1 MG/DL (8.5-10.1); CARBON DIOXIDE LEVEL 27 MEQ/L (21-32); CHLORIDE LEVEL 101 MEQ/L (98-107); CREATININE FOR GFR 0.71 MG/DL (0.55-1.30); GLOMERULAR FILTRATION RATE > 60.0 (>51); GLUCOSE, FASTING 317 MG/DL (70-100); POTASSIUM SERUM 4.8 MEQ/L (3.5-5.1); SODIUM LEVEL 136 MEQ/L (136-145)
[2018-07-20] MEDS: INSULIN IV RATE CHANGE DOCUMENTATION ML/HR XX SCH ×2 (04:00→09:30)
[2018-07-20 05:32] LABS: ACETONE/KETONE 7.36 MG/DL (<2.81); BLOOD UREA NITROGEN 23 MG/DL (7-18); CALCIUM LEVEL 8.6 MG/DL (8.5-10.1); CARBON DIOXIDE LEVEL 24 MEQ/L (21-32); CHLORIDE LEVEL 105 MEQ/L (98-107); CREATININE FOR GFR 0.57 MG/DL (0.55-1.30); GLOMERULAR FILTRATION RATE > 60.0 (>51); GLUCOSE, FASTING 273 MG/DL (70-100); POTASSIUM SERUM 3.7 MEQ/L (3.5-5.1); SODIUM LEVEL 138 MEQ/L (136-145)
[2018-07-20] MEDS ORDERED: KCL 20MEQ IN D5/0.45NS 1000ML 1,000 ML IV SCH (08:00)
--- NOTE | 2018-07-20 08:07 | ECGEPIP ---
Stationary ECG Study [facility] - ED Test Date: 2018-07-19 Pat Name: VIVEK MASTERS Department: Room: [place] [address] Gender: F Fitness Consultant: brie : [id number] Requested By: BRODERICK VANG PA-C. Order Number: [id number] Reading MD: Nadja Holley Measurements Intervals Peck Rate: 107 P: 31 CO: 128 QRS: 18 QRSD: 86 T: 23 QT: 339 QTc: 454 Interpretive Statements SINUS TACHYCARDIA NSTTW ABNORMALITY NO PRIOR FOR COMPARISON ABNORMAL RHYTHM ECG Electronically Signed On 07-20-2018 8:07:35 EST by Nadja Holley
[2018-07-20] MEDS ORDERED: LEVEMIR (INSULIN DETEMIR) 1 UNITS/0.01ML SC SCH (09:00)
[2018-07-20 09:01] LABS: ACETONE/KETONE 2.69 MG/DL (<2.81); BLOOD UREA NITROGEN 23 MG/DL (7-18); CALCIUM LEVEL 8.4 MG/DL (8.5-10.1); CARBON DIOXIDE LEVEL 28 MEQ/L (21-32); CHLORIDE LEVEL 103 MEQ/L (98-107); CREATININE FOR GFR 0.61 MG/DL (0.55-1.30); GLOMERULAR FILTRATION RATE > 60.0 (>51); GLUCOSE, FASTING 230 MG/DL (70-100); POTASSIUM SERUM 3.4 MEQ/L (3.5-5.1); SODIUM LEVEL 138 MEQ/L (136-145)
[2018-07-20] MEDS: ENOXAPARIN 40 MG/0.4 ML SYRINGE (J1650) SC SCH (09:54)
[2018-07-20] MEDS: AUGMENTIN 875 MG TAB PO SCH ×2 (09:54→21:33)
[2018-07-20] MEDS: PANTOPRAZOLE 40MG TAB (PROTONIX) PO SCH (09:55)
[2018-07-20] MEDS: LISINOPRIL 10 MG TAB PO SCH (09:57)
[2018-07-20] MEDS ORDERED: POTASSIUM CHLORIDE 10 MEQ SR TABLET PO ONE ×2 (10:00→12:45)
[2018-07-20 10:36] LABS: ACETONE/KETONE 2.62 MG/DL (<2.81); BLOOD UREA NITROGEN 23 MG/DL (7-18); CALCIUM LEVEL 8.8 MG/DL (8.5-10.1); CARBON DIOXIDE LEVEL 30 MEQ/L (21-32); CHLORIDE LEVEL 103 MEQ/L (98-107); CPK CREATINE PHOSPHOKINASE 49 U/L (26-192); CREATININE FOR GFR 0.66 MG/DL (0.55-1.30); GLOMERULAR FILTRATION RATE > 60.0 (>51); GLUCOSE, FASTING 209 MG/DL (70-100); MB/CK RELATIVE INDEX 3.27 (< OR =4); POTASSIUM SERUM 3.1 MEQ/L (3.5-5.1); SODIUM LEVEL 139 MEQ/L (136-145); TROPONIN I < 0.02 NG/ML (< 0.10)
[2018-07-20] MEDS: HumaLOG INSULIN (NovoLOG) PER UNIT SC SCH ×2 (12:11→17:30)
--- NOTE | 2018-07-20 12:51 | IPNPDOC ---
Text Note Date of Service The patient was seen on 07/20/18. NOTE Subjective: PHYSICAL EXAMINATION: VITAL SIGNS: Please see below GENERAL APPEARANCE: Resting comfortably with complaint of headache HEENT: Normocephalic, PERRLA, Mucous moist, CARDIOVASCULAR: S1,S2, pulse present, regularly, regular, no obvious murmur LUNGS: Equal air entry b/l, no wheezes or crackle ABDOMEN: Soft, BS present, no tenderness, no guarding GENITOURINARY: No Elise EXTREMITIES: B/L no edema, capillary refill present SKIN: Warm, No fever NEUROLOGICAL: Cranial nerves grossly intact PSYCHIATRIC: Normal mood and affect for current situation, family at the bedside LABORATORY DATA and Radiology : Reviewed. Assessment and plan: 53-year-old female was in a few past medical history hypertension, hyperlipidemia, asthma, sciatica, who is coming in complaining of headache, nausea and vomiting. Patient was recently seen in the ER 3 days ago diagnosed with sinusitis, hypertension, diabetes and was discharged on Augmentin, lisinopril plus hydrochlorothiazide combination drugs, and metformin. Patient came in this time because her symptoms worsened . Patient states that when she bends her headache is worse pain right underneath the eye, associated with dizziness, nausea, vomiting, increased urination and increased thirst. Patient denies of any fever. Patient denies of any diarrhea, dysuria, or other complaints. No coughing, fever, or sputum production. Patient has a history of heavy soda consumption. Patient states that she has not seen her physician for a long time but states that last time she seen her PCP was roughly a year ago. Patient denies smoking, drinking, or drug abuse. Patient was evaluated in the emergency room noted to have elevated glucose, osmolality, elevated hemoglobin A1c, and elevated beta hydroxybutyrate. Although patient denies of history of diabetes patient had elevated sugar in the 200 since 2014 and in March 2017 her hemoglobin A1c was 12. Patient is being admitted for further evaluation and treatment. Uncontrolled Diabetes I do not think patient was in DKA as there was no acidosis no elevated anion gap. Her elevated betahydoxybutyrate was probably due Starvation. She was not eating for 2 or 3 days due to nausea and vomiting. will stat patient on lispro and levemir and dc insulin infusion patient will have to go home with levemir. will need diabetic teaching. dietary consult. Headache, sinusitis -CT of the head and neg for acute process -On augmentin will finish course Hypertension -continue home regimen amlodipine, lisinopril, hold hydrochlorothiazide Hyperlipidemia - statin GERD - PPI Asthma -Resume home inhalers DVT prophylaxis with heparin subcutaneous VS,Fishbone, I+O VS, Fishbone, I+O Laboratory Tests 07/19/18 21:04 Red Blood Count 5.44 H, Mean Corpuscular Volume 85.7, Mean Corpuscular Hemoglobin 30.3, Mean Corpuscular Hemoglobin Concent 35.4, Red Cell Distribution Width 11.4 L, Neutrophils (%) (Auto) 66.5 H, Lymphocytes (%) (Auto) 25.0, Monocytes (%) (Auto) 7.4 H, Eosinophils (%) (Auto) 0.3, Basophils (%) (Auto) 0.3, Neutrophils # (Auto) 8.8 H, Lymphocytes # (Auto) 3.3, Monocytes # (Auto) 1.0 H, Eosinophils # (Auto) 0.0, Basophils # (Auto) 0.0, Calcium Level 10.0 07/20/18 00:25 Calcium Level 9.7, Total Creatine Kinase 56 07/20/18 02:25 Calcium Level 9.1 07/20/18 04:51 Calcium Level 8.6 07/20/18 07:55 Calcium Level 8.4 L 07/20/18 09:59 Calcium Level 8.8, Total Creatine Kinase 49 Vital Signs Date Time Temp Pulse Resp B/P (MAP) Pulse Ox O2 Delivery O2 Flow Rate FiO2 07/20/18 09:57 111/69 07/20/18 04:00 97.9 86 18 98 Room Air I&O- Last 24 Hours up to 6 AM0 07/20/18 06:00 Intake Total 755.5 ml Output Total 300 ml Balance 455.5 ml YNES PEREZ MD Jul 20, 2018 12:51
[2018-07-20 17:45] LABS: BLOOD UREA NITROGEN 23 MG/DL (7-18); CALCIUM LEVEL 8.8 MG/DL (8.5-10.1); CARBON DIOXIDE LEVEL 25 MEQ/L (21-32); CHLORIDE LEVEL 104 MEQ/L (98-107); CREATININE FOR GFR 0.72 MG/DL (0.55-1.30); GLOMERULAR FILTRATION RATE > 60.0 (>51); GLUCOSE, FASTING 285 MG/DL (70-100); POTASSIUM SERUM 3.9 MEQ/L (3.5-5.1); SODIUM LEVEL 137 MEQ/L (136-145)
[2018-07-20] MEDS ORDERED: HumaLOG INSULIN (NovoLOG) PER UNIT SC SCH (21:00)
[2018-07-20] MEDS ORDERED: amLODIPine 5 MG TAB PO SCH (21:00)
[2018-07-20] MEDS ORDERED: SIMVASTATIN 20 MG TAB PO SCH (21:00)
[2018-07-21 05:50] LABS: BASO # 0.1 10^3/uL (0.0-0.2); BASO % 0.6 % (0.0-1.0); EOS # 0.2 10^3/uL (0.0-0.50); HEMATOCRIT 39.5 % (36.0-47.0); LYMPH # 4.1 10^3/uL (1.5-4.5); MEAN CORPUSCULAR HEMOGLOBIN 30.5 pg (27.0-33.0); MEAN CORPUSCULAR HGB CONC 34.7 g/dl (32.0-36.5); MONO # 0.5 10^3/uL (0.0-0.8); MONO % 5.7 % (0.0-5.0); NEUTROPHILS # 4.4 10^3/uL (1.8-7.7); NEUTROPHILS % 47.2 % (36.0-66.0); PLATELET COUNT, AUTOMATED 267 10^3/uL (150-450); RED BLOOD COUNT 4.49 10^6/uL (4.00-5.40); WHITE BLOOD COUNT 9.3 10^3/uL (4.0-10.0)
[2018-07-21 05:56] LABS: HEMOGLOBIN 13.7 g/dl (12.0-15.5)
[2018-07-21 06:00] VITALS: BP 113/74
[2018-07-21 06:22] LABS: BLOOD UREA NITROGEN 23 MG/DL (7-18); CALCIUM LEVEL 8.3 MG/DL (8.5-10.1); CARBON DIOXIDE LEVEL 25 MEQ/L (21-32); CHLORIDE LEVEL 107 MEQ/L (98-107); CREATININE FOR GFR 0.54 MG/DL (0.55-1.30); GLOMERULAR FILTRATION RATE > 60.0 (>51); GLUCOSE, FASTING 239 MG/DL (70-100); POTASSIUM SERUM 3.7 MEQ/L (3.5-5.1); SODIUM LEVEL 138 MEQ/L (136-145)
[2018-07-21 07:49] VITALS: BP 113/74
[2018-07-21] MEDS: LISINOPRIL 10 MG TAB PO SCH (07:49)
[2018-07-21] MEDS: PANTOPRAZOLE 40MG TAB (PROTONIX) PO SCH (07:49)
[2018-07-21] MEDS: AUGMENTIN 875 MG TAB PO SCH (07:50)
[2018-07-21] MEDS: ENOXAPARIN 40 MG/0.4 ML SYRINGE (J1650) SC SCH (07:50)
[2018-07-21] MEDS: HumaLOG INSULIN (NovoLOG) PER UNIT SC SCH ×3 (07:51→17:38)
[2018-07-21] MEDS: ACETAMINOPHEN TAB 650MG DOSE (2X325MG) PO PRN ×2 (08:04→16:15)
[2018-07-21] MEDS ORDERED: POTASSIUM CHLORIDE 10 MEQ SR TABLET PO SCH (09:00)
[2018-07-21] MEDS ORDERED: INFLUENZA QUADRIVALENT PF VACCINE 0.5ML SYRINGE (90686) IM ONE (09:00)
[2018-07-21] MEDS ORDERED: LEVEMIR (INSULIN DETEMIR) 1 UNITS/0.01ML SC SCH (09:00)
[2018-07-21] MEDS ORDERED: LEVE1INJ5 SC (09:38)
[2018-07-21] MEDS ORDERED: BLOOKIT21 XX (11:17)
[2018-07-21] MEDS ORDERED: PEN1MIS22 SC (11:17)
[2018-07-21] MEDS ORDERED: ALCOPAD17 TOP (11:17)
[2018-07-21] MEDS ORDERED: GLUC1TES2 XX (11:17)
[2018-07-21] MEDS ORDERED: LANC30MI XX (11:17)
--- NOTE | 2018-07-21 21:59 | DS.PDOC ---
Discharge Summary General Date of Admission Jul 19, 2018 at 23:49 Date of Discharge 07/21/18 Attending Physician: YNES PEREZ MD Discharge Summary PROCEDURES PERFORMED DURING STAY: [None]. DISCHARGE DIAGNOSES: Uncontrolled Diabetes new diagnosis Hypertension Asthma Hyperlipidemia Sinusitis GERD COMPLICATIONS/CHIEF COMPLAINT: DKA. HISTORY OF PRESENT ILLNESS: See history and physical HOSPITAL COURSE: 53-year-old female was in a few past medical history hypertension, hyperlipidemia, asthma, sciatica, who is coming in complaining of headache, nausea and vomiting. Patient was recently seen in the ER 3 days ago diagnosed with sinusitis, hypertension, diabetes and was discharged on A ugmentin, lisinopril plus hydrochlorothiazide combination drugs, and metformin. Patient came in this time because her symptoms worsened . Patient states that when she bends her headache is worse pain right underneath the eye, associated with dizziness, nausea, vomiting, increased urination and increased thirst. Patient denies of any fever. Patient denies of any diarrhea, dysuria, or other complaints. No coughing, fever, or sputum production. Patient has a history of heavy soda consumption. Patient states that she has not seen her physician for a long time but states that last time she seen her PCP was roughly a year ago. Patient denies smoking, drinking, or drug abuse. Patient was evaluated in the emergency room noted to have elevated glucose, osmolality, elevated hemoglobin A1c, and elevated beta hydroxybutyrate. Although patient denies of history of diabetes patient had elevated sugar in the 200 since 2014 and in March 2017 her hemoglobin A1c was 12. Patient is being admitted for further evaluation and treatment. Uncontrolled Diabetes I do not think patient was in DKA as there was no acidosis no elevated anion gap. Her elevated betahydoxybutyrate was probably due Starvation. She was not eating for 2 or 3 days due to nausea and vomiting. will stat patient on lispro and levemir and dc insulin infusion patient will have to go home with levemir. will need diabetic teaching. dietary consult. Headache, sinusitis CT of the head and neg for acute process On augmentin will finish course Hypertension continue home regimen amlodipine, lisinopril, hold hydrochlorothiazide Hyperlipidemia statin GERD PPI Asthma Resume home inhalers DISCHARGE MEDICATIONS: Please see below. ALLERGIES: Please see below. PHYSICAL EXAMINATION ON DISCHARGE: VITAL SIGNS: Please see below. GENERAL APPEARANCE: Resting comfortably with complaint of headache HEENT: Normocephalic, PERRLA, Mucous moist, CARDIOVASCULAR: S1,S2, pulse present, regularly, regular, no obvious murmur LUNGS: Equal air entry b/l, no wheezes or crackle ABDOMEN: Soft, BS present, no tenderness, no guarding GENITOURINARY: No Elise EXTREMITIES: B/L no edema, capillary refill present SKIN: Warm, No fever NEUROLOGICAL: Cranial nerves grossly intact PSYCHIATRIC: Normal mood and affect for current situation, family at the bedside LABORATORY DATA: Please see below. ACTIVITY: [As tolerated]. DIET: Carb consistent DISPOSITION: 01 Home, Self-Care. DISCHARGE INSTRUCTIONS: Follow up with PMD in 1 week DISCHARGE CONDITION: [Stable]. TIME SPENT ON DISCHARGE: Greater than 30 minutes. Vital Signs/I&Os Vital Signs Date Time Temp Pulse Resp B/P (MAP) Pulse Ox O2 Delivery O2 Flow Rate FiO2 07/21/18 07:49 113/74 07/21/18 06:00 97.4 68 18 98 Room Air I&O- Last 24 Hours up to 6 AM 07/21/18 06:00 Intake Total 2726 ml Output Total 900 ml Balance 1826 ml Laboratory Data Labs 24H Laboratory Tests 2 07/21/18 05:29: Immature Granulocyte % (Auto) 0.5, White Blood Count 9.3, Red Blood Count 4.49, Hemoglobin 13.7#, Hematocrit 39.5, Mean Corpuscular Volume 88.0, Mean Corpuscular Hemoglobin 30.5, Mean Corpuscular Hemoglobin Concent 34.7, Red Cell Distribution Width 11.4L, Platelet Count 267, Neutrophils (%) (Auto) 47.2, Lymphocytes (%) (Auto) 44.0, Monocytes (%) (Auto) 5.7H, Eosinophils (%) (Auto) 2.0, Basophils (%) (Auto) 0.6, Neutrophils # (Auto) 4.4, Lymphocytes # (Auto) 4.1, Monocytes # (Auto) 0.5, Eosinophils # (Auto) 0.2, Basophils # (Auto) 0.1, Nucleated Red Blood Cells % (auto) 0.0, Anion Gap 6L, Glomerular Filtration Rate > 60.0, Blood Urea Nitrogen 23H, Creatinine 0.54L, Sodium Level 138, Potassium Level 3.7, Chloride Level 107, Carbon Dioxide Level 25, Calcium Level 8.3L 07/21/18 11:45: Bedside Glucose (Misc Panel) 243H CBC/BMP Laboratory Tests 07/21/18 05:29 Red Blood Count 4.49, Mean Corpuscular Volume 88.0, Mean Corpuscular Hemoglobin 30.5, Mean Corpuscular Hemoglobin Concent 34.7, Red Cell Distribution Width 11.4 L, Neutrophils (%) (Auto) 47.2, Lymphocytes (%) (Auto) 44.0, Monocytes (%) (Au to) 5.7 H, Eosinophils (%) (Auto) 2.0, Basophils (%) (Auto) 0.6, Neutrophils # (Auto) 4.4, Lymphocytes # (Auto) 4.1, Monocytes # (Auto) 0.5, Eosinophils # (Auto) 0.2, Basophils # (Auto) 0.1, Calcium Level 8.3 L FSBS Laboratory Tests Test 07/21/18 11:45 Range/Units Bedside Glucose (Misc Panel) 243 70-105 MG/DL Discharge Medications Scheduled (Lisinopril/Hydrochlorothi 10-12.5 mg) 1 Tab Tab, 1 TAB PO DAILY, (Reported) Amlodipine Besylate (Amlodipine Besylate) 5 Mg Tab, 5 MG PO QHS, (Reported) Amoxicillin/Clavulanate Potas (Augmentin 875-125 mg) 1 Tab Tab, 875 MG PO BID, (Reported) Esomeprazole Magnesium Trihydr (Nexium) 40 Mg Cap, 40 MG PO DAILY, (Reported) Glucostix Blood Test Strips (Glucose Meter Test Strips) 1 Maya Maya, 50 STRIP XX ASDIRECTED Hydrocortisone (Hydrocortisone) 1 % Cre, 1 DOSE EXT DAILY, (Reported) USES ON HANDS AFTER TAKING SHOWER Insulin Detemir (Levemir Flextouch) 100 Unit/Ml Inj, 20 UNIT SC DAILY Metformin Hydrochloride (Metformin HCl) 500 Mg Tab, 500 MG PO BID, (Reported) Simvastatin (Simvastatin) 20 Mg Tab, 20 MG PO QHS, (Reported) Scheduled PRN Acetaminophen (Tylenol) 325 Mg Tab, 650 MG PO Q4H PRN for PAIN / FEVER, (Reported) Albuterol Sulfate (Ventolin Hfa) 108 Mcg/Act Aer, 2 PUFFS INH Q4H PRN for SHORTNESS OF BREATH, (Reported) Cyclobenzaprine HCl (Cyclobenzaprine HCl) 5 Mg Tab, 5 MG PO TID PRN for MUSCLE SPASMS, (Reported) Ondansetron (Zofran Odt) 4 Mg Tab, 4 MG PO Q4H PRN for NAUSEA, (Reported) Allergies Coded Allergies: Sulfa Antibiotics (Verified Allergy, Intermediate, rash, 08/31/17) Latex (Unverified Allergy, Mild, itchy hands, 07/20/18) Oxycodone (Verified Adverse Reaction, Mild, Nausea/Vomiting, 01/07/18) YNES PEREZ MD Jul 21, 2018 21:59
== END 2018-07-21 18:05 | disposition home or self-care (01) | DRG 420 ==
LOC: M ED 20:21 → M ED INP 23:49 → M ICU 07-20 02:37 → M MSPAV 07-20 15:20
PROVIDERS: ADMIT Internal Medicine; ATTEND Internal Medicine Nephrology
DX: E11.65 Type 2 diabetes mellitus with hyperglycemia (principal); I10 Essential (primary) hypertension; E78.5 Hyperlipidemia, unspecified; M54.30 Sciatica, unspecified side; J32.9 Chronic sinusitis, unspecified; K21.9 Gastro-esophageal reflux disease without esophagitis; J45.909 Unspecified asthma, uncomplicated; Z79.84 Long term (current) use of oral hypoglycemic drugs; Z88.2 Allergy status to sulfonamides; Z88.5 Allergy status to narcotic agent; Z79.899 Other long term (current) drug therapy

== ENCOUNTER → 2018-07-31 | Outpatient (CLI) | payer BC ==
[~2018-07-31] MED LIST changes: +ALCOPAD17 TOP; -AMLO5TAB4 PO; +AMLO5TAB6 PO; +BLOOKIT21 XX; +GLUC1TES2 XX; +HYDR1CRE2 EXT; +LANC30MI XX; +LEVE1INJ5 SC; +NEXI40CA PO; +PEN1MIS22 SC; +TYLE325T5 PO
[2018-07-31 10:05] LABS: MALB URINE SIEMENS 46.8 MG/L; MAU/CREAT RATIO 21.5 MCG/MG (0.0-30.0)
[2018-07-31 10:08] LABS: CHOLESTEROL RISK RATIO 2.679 (<5)
== END ==
LOC: M LAB 07:51
PROVIDERS: ATTEND Family Medicine
DX: E11.9 Type 2 diabetes mellitus without complications (principal)

== ENCOUNTER → 2018-11-15 | Outpatient (REF) | payer BC ==
[~2018-11-15] MED LIST changes: +HYDR-3715 PO; -NORCOTAB PO
[2018-11-15 15:59] LABS: RUBELLA IgG QUALITATIVE IMMUNE (IMMUNE)
[2018-11-15 16:06] LABS: HEMOGLOBIN A1c 8.3 %
[2018-11-19 00:06] LABS: ISLET CELL ANTIBODIES Negative (Neg:<1:1); RUBEOLA IgG ANTIBODY 32.1 AU/mL (Immune >29.9)
[2018-11-23 00:06] LABS: C-PEPTIDE 5.5 ng/mL (1.1-4.4); IA-2 AUTOANTIBODIES < 7.50 U/mL (.)
== END ==
LOC: M SFHCPLAZ 14:02
PROVIDERS: ATTEND Family Medicine
DX: Z00.00 Encounter for general adult medical examination without abnormal findings (principal); E11.9 Type 2 diabetes mellitus without complications

== ENCOUNTER 2018-11-30 00:20 | Emergency (ER) | payer BC ==
[~2018-11-30] VITALS: Ht 165.1 cm; Wt 90.0 kg
[2018-11-30 01:14] LABS: BASO % 0.3 % (0.0-1.0); EOS # 0.2 10^3/uL (0.0-0.50); EOS % 1.2 % (0.0-3.0); HEMATOCRIT 45.1 % (36.0-47.0); HEMOGLOBIN 15.7 g/dl (12.0-15.5); LYMPH # 2.8 10^3/uL (1.5-4.5); LYMPH % 20.7 % (24.0-44.0); MEAN CORPUSCULAR HEMOGLOBIN 30.4 pg (27.0-33.0); MEAN CORPUSCULAR HGB CONC 34.8 g/dl (32.0-36.5); MEAN CORPUSCULAR VOLUME 87.2 fl (80.0-96.0); MONO # 0.7 10^3/uL (0.0-0.8); MONO % 4.8 % (0.0-5.0); NEUTROPHILS # 9.9 10^3/uL (1.8-7.7); NEUTROPHILS % 72.4 % (36.0-66.0); PLATELET COUNT, AUTOMATED 292 10^3/uL (150-450); RED BLOOD COUNT 5.17 10^6/uL (4.00-5.40); WHITE BLOOD COUNT 13.7 10^3/uL (4.0-10.0)
[2018-11-30 01:53] LABS: ALBUMIN 3.7 GM/DL (3.2-5.2); ALT/SGPT 29 U/L (12-78); BILIRUBIN,DIRECT 0.1 MG/DL (0.0-0.2); BILIRUBIN,TOTAL 0.5 MG/DL (0.2-1.0); BLOOD UREA NITROGEN 16 MG/DL (7-18); CALCIUM LEVEL 8.6 MG/DL (8.5-10.1); CARBON DIOXIDE LEVEL 20 MEQ/L (21-32); CHLORIDE LEVEL 108 MEQ/L (98-107); CREATININE FOR GFR 0.62 MG/DL (0.55-1.30); GLOMERULAR FILTRATION RATE > 60.0 (>51); GLUCOSE, FASTING 228 MG/DL (70-100); LIPASE 181 U/L (73-393); POTASSIUM SERUM 4.3 MEQ/L (3.5-5.1); SODIUM LEVEL 139 MEQ/L (136-145); TOTAL PROTEIN 7.4 GM/DL (6.4-8.2)
[2018-11-30] MEDS ORDERED: NS 1,000 ML IV ONE (03:15)
[2018-11-30] MEDS ORDERED: METOCLOPRAMIDE INJ 10MG/2ML VIAL (J2765) IV ONE (03:15)
[2018-11-30 05:03] VITALS: BP 140/78
== END 2018-11-30 05:08 | disposition home or self-care (01) ==
LOC: M ED 00:20
DX: K52.9 Noninfective gastroenteritis and colitis, unspecified (principal); E11.9 Type 2 diabetes mellitus without complications; I10 Essential (primary) hypertension; Z79.899 Other long term (current) drug therapy; Z79.4 Long term (current) use of insulin; Z88.1 Allergy status to other antibiotic agents; Z88.2 Allergy status to sulfonamides; Z88.5 Allergy status to narcotic agent; Z91.040 Latex allergy status; Z91.048 Other nonmedicinal substance allergy status
CPT/HCPCS: 80048; 80076; 81001; 83690; 85025; 87086; 87507; 96361; 96374; 99284; J2765

== ENCOUNTER 2019-02-03 18:58 | Emergency (ER) | payer BC ==
[~2019-02-03] VITALS: Ht 165.1 cm; Wt 90.0 kg
[2019-02-03 21:37] VITALS: BP 112/76
--- NOTE | 2019-02-04 08:25 | REP ---
Left wrist series: Four views. History: Pain. No history of injury. Comparison study: April 21, 2016. Findings: There is a stable benign cyst in the region of the waist of the left carpal navicula unchanged from the prior study and 6 mm in greatest diameter. There is diffuse osteopenia. There is mild osteoarthritic spurring at the first carpometacarpal articulation. There is minimal osteoarthritic change at the navicular multangular articulation. These findings are unchanged as well. Impression: Mild osteoarthritic changes. Small cyst in the navicula. No acute bony abnormality. Electronically Signed by Christian Saavedra MD 02/04/2019 11:16 A
== END 2019-02-03 21:45 | disposition home or self-care (01) ==
LOC: M ED 18:58
DX: M65.4 Radial styloid tenosynovitis [de Quervain] (principal); J45.909 Unspecified asthma, uncomplicated; I10 Essential (primary) hypertension; E11.9 Type 2 diabetes mellitus without complications; E78.5 Hyperlipidemia, unspecified; K21.9 Gastro-esophageal reflux disease without esophagitis; Z79.899 Other long term (current) drug therapy; Z79.4 Long term (current) use of insulin; Z88.1 Allergy status to other antibiotic agents; Z88.2 Allergy status to sulfonamides; Z88.5 Allergy status to narcotic agent; Z91.040 Latex allergy status; Z91.048 Other nonmedicinal substance allergy status

== ENCOUNTER 2019-02-07 09:50 | Emergency (ER) | payer BC ==
[~2019-02-07] VITALS: Ht 165.1 cm; Wt 94.7 kg
[2019-02-07 11:38] VITALS: BP 121/81
== END 2019-02-07 11:40 | disposition home or self-care (01) ==
LOC: M ED 09:50
DX: M65.842 Other synovitis and tenosynovitis, left hand (principal); E11.9 Type 2 diabetes mellitus without complications; I10 Essential (primary) hypertension; J45.909 Unspecified asthma, uncomplicated; E78.5 Hyperlipidemia, unspecified; Z79.899 Other long term (current) drug therapy; Z79.4 Long term (current) use of insulin; Z88.1 Allergy status to other antibiotic agents; Z88.2 Allergy status to sulfonamides; Z88.5 Allergy status to narcotic agent; Z91.040 Latex allergy status; Z91.048 Other nonmedicinal substance allergy status

== ENCOUNTER 2020-03-06 19:48 | Emergency (ER) | payer BC ==
[~2020-03-06] VITALS: Ht 165.1 cm; Wt 93.5 kg
[~2020-03-06 19:48] MED LIST changes: +AMLO1TAB24 PO; -AMLO5TAB6 PO; +LISI10TA15 PO; -LISI10TA2 PO; -LISI2.5T76 GT; +LISI2.5T8 GT; -SIMV20TA2 PO; +SIMV20TA22 PO; -SIMV40TA2 PO; +SIMV40TA20 PO
--- NOTE | 2020-03-06 21:05 | REPVR ---
PROCEDURE INFORMATION: Exam: XR Abdomen, 2 Views Exam date and time: 03/06/2020 8:49 PM Age: 54 years old Clinical indication: Abdominal pain; Other: Constipation; Additional info: Constipation x 6 days TECHNIQUE: Imaging protocol: XR of the abdomen. Views: 2 Views. COMPARISON: CT ABD PELVIS WITH CONTRAST 10/23/2014 1:38 AM FINDINGS: Gastrointestinal tract: Bowel gas pattern is nonspecific. No evidence of small bowel obstruction. Normal pattern of stool overlies the colon. Intraperitoneal space: No radiographic evidence of pneumoperitoneum. Left pelvic surgical clips are present Bones/joints: Visualized bony structures are unremarkable. Soft tissues: No concerning calcifications are present. IMPRESSION: No radiographic evidence of acute intra-abdominal or pelvic process. Electronically signed by: Taran Isaac On 03/06/2020 21:05:17 PM
[2020-03-06] MEDS ORDERED: MAGN296S16 PO (21:57)
[2020-03-06] MEDS ORDERED: MIRA3350 PO (21:58)
[2020-03-06 22:14] VITALS: BP 103/60
== END 2020-03-06 22:15 | disposition home or self-care (01) ==
LOC: M ED 19:48
DX: K59.00 Constipation, unspecified (principal); E11.9 Type 2 diabetes mellitus without complications; I10 Essential (primary) hypertension; E78.5 Hyperlipidemia, unspecified; R51 Headache; J45.909 Unspecified asthma, uncomplicated; K21.9 Gastro-esophageal reflux disease without esophagitis; M54.9 Dorsalgia, unspecified

== ENCOUNTER → 2020-09-25 | Outpatient (CLI) | payer BC ==
[~2020-09-25] MED LIST changes: -LISI-542 PO; +LISI-898 PO; +MAGN296S16 PO; +MIRA3350 PO
[2020-09-25 11:37] LABS: BASO # 0.1 10^3/uL (0.0-0.2); BASO % 0.7 % (0.0-1.0); EOS # 0.3 10^3/uL (0.0-0.5); EOS % 4.1 % (0.0-3.0); HEMATOCRIT 44.9 % (36.0-47.0); HEMOGLOBIN 15.4 g/dl (12.0-15.5); LYMPH # 2.5 10^3/uL (1.5-5.0); LYMPH % 35.5 % (24.0-44.0); MEAN CORPUSCULAR HEMOGLOBIN 30.3 pg (27.0-33.0); MEAN CORPUSCULAR HGB CONC 34.3 g/dl (32.0-36.5); MEAN CORPUSCULAR VOLUME 88.2 fl (80.0-96.0); MONO # 0.4 10^3/uL (0.0-0.8); MONO % 5.8 % (2.0-8.0); NEUTROPHILS # 3.7 10^3/uL (1.5-8.5); NEUTROPHILS % 53.5 % (36.0-66.0); PLATELET COUNT, AUTOMATED 253 10^3/uL (150-450); RED BLOOD COUNT 5.09 10^6/uL (4.00-5.40)
[2020-09-25 12:30] LABS: ALBUMIN 3.4 GM/DL (3.2-5.2); ALT/SGPT 18 U/L (12-78); BILIRUBIN,TOTAL 0.6 MG/DL (0.2-1.0); BLOOD UREA NITROGEN 17 MG/DL (7-18); CALCIUM LEVEL 9.3 MG/DL (8.5-10.1); CARBON DIOXIDE LEVEL 29 MEQ/L (21-32); CHLORIDE LEVEL 102 MEQ/L (98-107); CHOLESTEROL LEVEL 208 MG/DL (<200); CHOLESTEROL RISK RATIO 3.781 (<5); CREATININE FOR GFR 0.63 MG/DL (0.55-1.30); GLOMERULAR FILTRATION RATE > 60.0 (>51); GLUCOSE, FASTING 262 MG/DL (70-100); HDL CHOLESTEROL 55 MG/DL (>40); LDL CHOLESTEROL 127 MG/DL (<100); NON-HDL-C 153 MG/DL; POTASSIUM SERUM 4.3 MEQ/L (3.5-5.1); SODIUM LEVEL 137 MEQ/L (136-145); TRIGLYCERIDES LEVEL 131 MG/DL (<150)
[2020-09-25 13:10] LABS: MAU/CREAT RATIO 62.7 MCG/MG (0.0-30.0)
[2020-09-25 13:51] LABS: HEMOGLOBIN A1c 10.7 %
== END ==
LOC: M LAB 10:34
PROVIDERS: ATTEND Student in an Organized Health Care Education/Training Program
DX: E11.9 Type 2 diabetes mellitus without complications (principal); E78.5 Hyperlipidemia, unspecified; I10 Essential (primary) hypertension

== ENCOUNTER 2021-01-08 22:39 | Emergency (ER) | payer BC ==
[~2021-01-08] VITALS: Ht 165.1 cm; Wt 89.1 kg
[2021-01-08 22:40] VITALS: BP 112/65
== END 2021-01-09 00:36 | disposition left against medical advice (07) ==
LOC: M ED 22:39
DX: Z53.21 Procedure and treatment not carried out due to patient leaving prior to being seen by health care provider (principal)

== ENCOUNTER → 2021-01-09 | Outpatient (REF) | payer BC ==
[2021-01-09 14:51] LABS: APPEARANCE, URINE TURBID (CLEAR); BACTERIA, URINE AUTO NEGATIVE (NEGATIVE); BILIRUBIN, URINE AUTO NEGATIVE (NEGATIVE); BLOOD, URINE BLOOD 1+ (NEGATIVE); COLOR, URINE AMBER (YELLOW); GLUCOSE, URINE (UA) AUTO 3+ mg/dL (NEGATIVE); KETONE, URINE AUTO NEGATIVE (NEGATIVE); LEUKOCYTE ESTERASE, URINE AUTO 3+ (NEGATIVE); MUCUS, URINE SMALL (NEGATIVE); NITRITE, URINE AUTO NEGATIVE (NEGATIVE); PROTEIN, URINE AUTO 1+ mg/dL (NEGATIVE); RBC, URINE AUTO 19 /HPF (0-3); SPECIFIC GRAVITY URINE AUTO 1.024 (1.002-1.035); SQUAMOUS EPITHELIAL CELL UR AU 8 /HPF (0-6); TRANSITIONAL EPITHELIAL AUTO 2 /HPF; WBC, URINE AUTO 151 /HPF (0-3)
== END ==
LOC: M LAB REF 12:13
PROVIDERS: ATTEND Physician Assistant
DX: R19.7 Diarrhea, unspecified (principal); N39.0 Urinary tract infection, site not specified

== ENCOUNTER 2021-06-02 14:55 | Emergency (ER) | payer BC ==
[~2021-06-02] VITALS: Ht 165.1 cm; Wt 85.5 kg
[2021-06-02 14:55] VITALS: BP 142/92
--- OUTSIDE RECORDS SUMMARY | 2021-06-02 15:07 | CCD | Continuity of Care Document ---
Author Author Lela SHANE PA-C Organization Unknown Address [address] [place] [id number] Phone [phone] Problems Description No Information Available Social History Type Date Description Comments Sex Unknown Allergies, Adverse Reactions, Alerts Description No Information Available Medications Active Medications SIG Qnty Indications Ordering Provide r Date Medrol 4mg Tablets dose patricia, take as directed on sheet 1tabs M54.2 Omid Shane MD 03/08/2021 Immunizations Description No Information Available Vital Signs Date Vital Result Comment 03/08/2021 11:06am Body Temperature 96.9 F Height 64 inches 5'4" Weight 190.38 lb BMI (Body Mass Index) 32.7 kg/m2 Results Description No Information Available Procedures Date Code Description Status 03/08/2021 98760 Office/Outpatient New Low MDM 30 -44 Minutes Completed 03/08/2021 41541 X-Ray Spine Cervical 6 Or More V iews Completed Medical Devices Description No Information Available Encounters Type Date Location Provider Dx Diagnosis Office Visit 03/08/2021 10:30a [place] Svetlana Shane PA-C M54.2 Cervicalgia M47.892 Other spondylosis, cervical region M50.30 Other cervical disc degenera tion, unsp cervical region Assessments Date Code Description Provider 03/08/2021 M54.2 Cervicalgia Omid Miller 03/08/2021 M47.892 Other spondylosis, cervical lili on Svetlana Shane PA-C 03/08/2021 M50.30 Other cervical disc degeneration , unspecified cervical region Svetlana Shane PA-C Plan of Treatment 03/08/2021 - Svetlana Shane PA-C* M54.2 Cervicalgia* New Medication:* Medrol 4 mg - dose patricia, take as directed on sheet * Follow up:* 2-3 week neck kassidy with [facility] * M47.892 Other spondylosis, cervical region * M50.30 Other cervical disc degeneration, unspecified cervical region Functional Status Description No Information Available Mental Status Description No Information Available Referrals Description No Information Available
--- OUTSIDE RECORDS SUMMARY | 2021-06-02 15:07 | CCD | Continuity of Care Document ---
Author Author Lela LOBATO PA-C Organization Unknown Address [address] [place] [id number] Phone [phone] Problems Active Problems Provider Date Type 2 diabetes mellitus Svetlana Lobato PA-C Onset: 03/08/20 21 Social History Type Date Description Comments Sex Unknown Tobacco Use Start: Unknown Patient has never smoked Allergies, Adverse Reactions, Alerts Description No Known Drug Allergies Medications Active Medications SIG Qnty Indications Ordering Provide r Date Medrol 4mg Tablets dose patricia, take as directed on sheet 1tabs M54.2 Omid Lobato MD 03/08/2021 Cyclobenzaprine HCL 5mg Tablets Unknown Esomeprazole Magnesium 40mg Capsules DR Unknown Lisinopril-Hydrochlorothiazide 10-12.5mg Tablets Unknown Atorvastatin Calcium 40mg Tablets Unknown Metformin HCL 1000mg Tablets Unknown Levemir Flex Touch 100Unit/ML Sopn inject 6 units once every morning and 10 units once every night mdd 16 units. Unknown Immunizations Description No Information Available Vital Signs Date Vital Result Comment 03/08/2021 11:06am Body Temperature 96.9 F Height 64 inches 5'4" Weight 190.38 lb BMI (Body Mass Index) 32.7 kg/m2 Results Description No Information Available Procedures Date Code Description Status 03/08/2021 44354 Office/Outpatient New Low MDM 30 -44 Minutes Completed 03/08/2021 88370 X-Ray Spine Cervical 6 Or More V iews Completed Medical Devices Description No Information Available Encounters Type Date Location Provider Dx Diagnosis Office Visit 03/08/2021 10:30a [place] Svetlana Lobato PA-C M47.892 Other spondylosis, cervical region M50.30 Other cervical disc degenera tion, unsp cervical region M54.2 Cervicalgia Assessments Date Code Description Provider 03/08/2021 M47.892 Other spondylosis, cervical lili on Svetlana Lobato PA-C 03/08/2021 M50.30 Other cervical disc degeneration , unspecified cervical region Svetlana Lobato PA-C 03/08/2021 M54.2 Cervicalgia Omid Miller Plan of Treatment Future Appointment(s):* 03/29/2021 2:00 pm - Svetlana Lobato PA-C at [place] 03/08/2021 - Svetlana Lobato PA-C* M47.892 Other spondylosis, cervical region * M50.30 Other cervical disc degeneration, unspecified cervical region * M54.2 Cervicalgia* New Medication:* Medrol 4 mg - dose patricia, take as directed on sheet * Follow up:* 2-3 week neck kassidy with [facility] Functional Status Description No Information Available Mental Status Description No Information Available Referrals Refer to Reason for Referral Status Appt Date Keaton Tate MD AUTH FOR C-SPINE 20 VISITS T [facility] 07/19/21. REF #[id number]. Created [facility], [address] [address] [phone]
--- OUTSIDE RECORDS SUMMARY | 2021-06-02 15:07 | CCD ---
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, PA-C Unavailable Unavailabl e Fish, [facility], PA-C Unavailable Unavailabl e Fish, [facility], PA-C Unavailable Unavailabl e Fish, [facility], PA-C Unavailable [facility] Un[facility] Unavailable [facility] Unavailable Unavailabl e Fish, [facility], [facility]-C Unavailable Unavailabl e Fish, [facility], PA-C Unavailable Unavailabl e Fish, [facility], PA-C Unavailable Unavailabl e Fish, [facility], PA-C Unavailable Unavailabl e Fish, [facility], PA-C Unavailable Unavailabl e Fish, [facility], PA-C Unavailable Unavailabl e Fish, [facility], PA-C Unavailable Unavailabl e Fish, [facility], PA-C Unavailable Unavailabl e Fish, [facility], PA-C Unavailable Unavailabl e Fish, [facility], PA-C Unavailable Unavailabl e Fish, [facility], PA-C Unavailable Unavailabl e Fish, [facility], PA-C Unavailable Unavailabl e Fish, [facility], PA-C Unavailable Unavailabl e Fish, [facility], PA-C Unavailable Unavailabl e Fish, [facility], PA-C Unavailable Unavailabl e Fish, [facility], PA-C Unavailable Unavailabl e Fish, [facility], PA-C Unavailable Unavailabl e Fish, Mary[facility], PA-C Unavailable Unavailabl e Fish, [facility], PA-C Unavailable Unavailabl e Fish, [facility], PA-C Unavailable Unavailabl e Fish, [facility], PA-C Unavailable Unavailabl e Fish, [facility], PA-C Unavailable Unavailabl e Fish, [facility], PA-C Unavailable Unavailabl e Re-disclosure Warning The records that you are about to access may contain information from federally-assisted alcohol or drug abuse programs. If such information is present, then the following federally mandated warning applies: This information has been disclosed to you from records protected by federal confidentiality rules (42 CFR part 2). The federal rules prohibit you from making any further disclosure of this information unless further disclosure is expressly permitted by the written consent of the person to whom it pertains or as otherwise permitted by 42 CFR part 2. A general authorization for the release of medical or other information is NOT sufficient for this purpose. The Federal rules restrict any use of the information to criminally investigate or prosecute any alcohol or drug abuse patient.The records that you are about to access may contain highly sensitive health information, the redisclosure of which is protected by Article 27-F of the [facility] Public Health law. If you continue you may have access to information: Regarding HIV / AIDS; Provided by facilities licensed or operated by the [facility] Office of Mental Health; or Provided by the [facility] Office for People With Developmental Disabilities. If such information is present, then the following [facility] mandated warning applies: This information has been disclosed to you from confidential records which are protected by state law. State law prohibits you from making any further disclosure of this information without the specific written consent of the person to whom it pertains, or as otherwise permitted by law. Any unauthorized further disclosure in violation of state law may result in a fine or usp sentence or both. A general authorization for the release of medical or other information is NOT sufficient authorization for further disc losure. Family History Family Member Name Family Member Gender Family Member Status Date o f Status Description Data Source(s) Unknown Unknown Problem MEDENT ([facility]) Unknown Male Problem MEDENT ([facility] Unknown Female Problem MEDENT ([facility]) Unknown Female Problem MEDENT ([facility]) Unknown Female Problem MEDENT ([facility]) Encounters Encounter Providers Location Date Indications Data Source(s ) OFFICE OUTPATIENT NEW 30 MINUTES Attender: Svetlana STORY PA-C Physical Therapy 03/08/2021 10:30:00 AM EDT MEDENT ([facility]) Unknown [address] [facility] [place] [address] 02/18/2021 12:00:00 AM EDT eCW1 ([facility]) Unknown [address] [facility] [place] [address] 02/13/2021 12:00:00 AM EDT eCW1 ([facility]) Unknown [address] [facility] [place] [address] 10/31/2020 12:00:00 AM EDT eCW1 ([facility]) Outpatient [address] [facility] [place] [address] 09/28/2020 12:00:00 AM EST eCW1 ([facility]) [place] [address] [facility] [place] [address] 09/06/2020 12:00:00 AM EST eCW1 ([facility]) [place] [address] [facility] [place] [address] 08/13/2020 12:00:00 AM EST eCW1 ([facility]) TeleMedicine Phone E/M by Phys 11-20 Min [address] [place] [address] 07/30/2020 12:00:00 AM EST eCW1 ([facility]) [place] [address] [facility] [place] [address] 07/30/2020 12:00:00 AM EST eCW1 ([facility]) [place] [address] [facility] [place] [address] 07/06/2020 12:00:00 AM EST eCW1 ([facility]) [place] [address] [facility] [place] [address] 05/11/2020 12:00:00 AM EDT eCW1 ([facility]) Immunizations Vaccine Date Status Description Data Source(s) COVID-19 VACCINE [facility] 05/22/2021 12:00:00 AM EDT completed [facility] Vaccine Series Complete: YESThis Data wa s Submitted to [facility]. COVID-19 VACCINE [facility] 05/01/2021 12:00:00 AM EDT completed [facility] Vaccine Series Complete: NOThis Data was Submitted to [facility]. Medications Medication Brand Name Start Date Product Form Dose Route Admi nistrative Instructions Pharmacy Instructions Status Indications Reaction Description Data Source(s) Methylprednisolone 4 MG Oral Tablet [Medrol] Medrol 12:00:00 AM EDT active MEDENT ( [facility] ) Metformin hydrochloride 1000 MG Oral Tablet metFORMIN HCl 1000 MG metFORMIN HCl 1000 MG 02/20/2021 12:00:00 AM EDT 1.0 {tablet_with_a_meal} active metFORMIN HCl 1000 MG eCW1 ([facility]) atorvastatin 40 MG Oral Tablet Atorvastatin Calcium 40 MG Atorvastatin Calcium 40 MG 09/28/2020 12:00:00 AM EST 1.0 {tablet} activ e Atorvastatin Calcium 40 MG eCW1 ([facility]) atorvastatin 40 MG Oral Tablet Atorvastatin Calcium 40 MG Atorvastatin Calcium 40 MG 09/28/2020 12:00:00 AM EST 1.0 {tablet} activ e Atorvastatin Calcium 40 MG eCW1 ([facility]) atorvastatin 40 MG Oral Tablet Atorvastatin Calcium 40 MG Atorvastatin Calcium 40 MG 09/28/2020 12:00:00 AM EST 1.0 {tablet} activ e Atorvastatin Calcium 40 MG eCW1 ([facility]) Pen [place] 31G X 5 MM Pen [place] 31G X 5 MM 09/28/2020 12:00:[address] active Pen [place] 31G X 5 MM eC W1 ([facility]) Pen [place] 31G X 5 MM [place] 31G X 5 MM 09/28/2020 12:00:[address] active Pen [place] 31G X 5 MM eC W1 ([facility]) Pen [place] 31G X 5 MM [place] 31G X 5 MM 09/28/2020 12:00:[address] active Pen [place] 31G X 5 MM eC W1 ([facility]) atorvastatin 40 MG Oral Tablet Atorvastatin Calcium 40 MG Atorvastatin Calcium 40 MG 09/28/2020 12:00:00 AM EST 1.0 {tablet} activ e Atorvastatin Calcium 40 MG eCW1 ([facility]) atorvastatin 40 MG Oral Tablet Atorvastatin Calcium 40 MG Atorvastatin Calcium 40 MG 09/28/2020 12:00:00 AM EST 1.0 {tablet} activ e Atorvastatin Calcium 40 MG eCW1 ([facility]) Pen [place] 31G X 5 MM Pen [place] 31G X 5 MM 09/28/2020 12:00:[address] active Pen [place] 31G X 5 MM eC W1 ([facility]) Pen [place] 31G X 5 MM Pen [place] 31G X 5 MM 09/28/2020 12:00:[address] active Pen [place] 31G X 5 MM eC W1 ([facility]) Pen [place] 31G X 5 MM Pen [place] 31G X 5 MM 09/28/2020 12:00:[address] active Pen [place] 31G X 5 MM eC W1 ([facility]) atorvastatin 40 MG Oral Tablet Atorvastatin Calcium 40 MG Atorvastatin Calcium 40 MG 09/28/2020 12:00:00 AM EST 1.0 {tablet} activ e Atorvastatin Calcium 40 MG eCW1 ([facility]) Cyclobenzaprine hydrochloride 5 MG Oral Tablet Cyclobe nzaprine HCl 5 MG Cyclobenzaprine HCl 5 MG 08/13/2020 12:00:00 AM EST 1.0 {tablet_at_bedtime_as_needed} active Cy clobenzaprine HCl 5 MG eCW1 ([facility]) benzonatate 100 MG Oral Capsule [Tessalon Perles] Yue arun Perles 100 MG Tessalon Perles 100 MG 07/30/2020 12:00:00 AM EST 1.0 {capsule_as_nee ded} active Tessalon Perles 100 MG eCW1 ([facility]) Cepacol Dual Relief 5-30-5 %-MG/SPRAY Cepacol Dual Relief 5- 30-5 %-MG/SPRAY 07/30/2020 12:00:00 AM EST active Cepacol Dual Relief 5-30-5 %-MG/SPRAY eCW1 ([facility]) benzonatate 100 MG Oral Capsule [Tessalon Perles] Yue arun Perles 100 MG Tessalon Perles 100 MG 07/30/2020 12:00:00 AM EST 1.0 {capsule_as_nee ded} active Tessalon Perles 100 MG eCW1 ([facility]) Cepacol Dual Relief 5-30-5 %-MG/SPRAY Cepacol Dual Relief 5- 30-5 %-MG/SPRAY 07/30/2020 12:00:00 AM EST active Cepacol Dual Relief 5-30-5 %-MG/SPRAY eCW1 ([facility]) benzonatate 100 MG Oral Capsule [Tessalon Perles] Yue arun Perles 100 MG Tessalon Perles 100 MG 07/30/2020 12:00:00 AM EST 1.0 {capsule_as_nee ded} active Tessalon Perles 100 MG eCW1 ([facility]) benzonatate 100 MG Oral Capsule [Tessalon Perles] Yue arun Perles 100 MG Tessalon Perles 100 MG 07/30/2020 12:00:00 AM EST 1.0 {capsule_as_nee ded} active Tessalon Perles 100 MG eCW1 ([facility]) Cepacol Dual Relief 5-30-5 %-MG/SPRAY Cepacol Dual Relief 5- 30-5 %-MG/SPRAY 07/30/2020 12:00:00 AM EST active Cepacol Dual Relief 5-30-5 %-MG/SPRAY eCW1 ([facility]) benzonatate 100 MG Oral Capsule [Tessalon Perles] Yue arun Perles 100 MG Tessalon Perles 100 MG 07/30/2020 12:00:00 AM EST 1.0 {capsule_as_nee ded} active Tessalon Perles 100 MG eCW1 ([facility]) Cepacol Dual Relief 5-30-5 %-MG/SPRAY Cepacol Dual Relief 5- 30-5 %-MG/SPRAY 07/30/2020 12:00:00 AM EST active Cepacol Dual Relief 5-30-5 %-MG/SPRAY eCW1 ([facility]) benzonatate 100 MG Oral Capsule [Tessalon Perles] Yue arun Perles 100 MG Tessalon Perles 100 MG 07/30/2020 12:00:00 AM EST 1.0 {capsule_as_nee ded} active Tessalon Perles 100 MG eCW1 ([facility]) benzonatate 100 MG Oral Capsule [Tessalon Perles] Yue arun Perles 100 MG Tessalon Perles 100 MG 07/30/2020 12:00:00 AM EST 1.0 {capsule_as_nee ded} active Tessalon Perles 100 MG eCW1 ([facility]) benzonatate 100 MG Oral Capsule [Tessalon Perles] Yue arun Perles 100 MG Tessalon Perles 100 MG 07/30/2020 12:00:00 AM EST 1.0 {capsule_as_nee ded} active Tessalon Perles 100 MG eCW1 ([facility]) Cepacol Dual Relief 5-30-5 %-MG/SPRAY Cepacol Dual Relief 5- 30-5 %-MG/SPRAY 07/30/2020 12:00:00 AM EST active Cepacol Dual Relief 5-30-5 %-MG/SPRAY eCW1 ([facility]) Cepacol Dual Relief 5-30-5 %-MG/SPRAY Cepacol Dual Relief 5- 30-5 %-MG/SPRAY 07/30/2020 12:00:00 AM EST active Cepacol Dual Relief 5-30-5 %-MG/SPRAY eCW1 ([facility]) Cepacol Dual Relief 5-30-5 %-MG/SPRAY Cepacol Dual Relief 5- 30-5 %-MG/SPRAY 07/30/2020 12:00:00 AM EST active Cepacol Dual Relief 5-30-5 %-MG/SPRAY eCW1 ([facility]) Cepacol Dual Relief 5-30-5 %-MG/SPRAY Cepacol Dual Relief 5- 30-5 %-MG/SPRAY 07/30/2020 12:00:00 AM EST active Cepacol Dual Relief 5-30-5 %-MG/SPRAY eCW1 ([facility]) Insurance Providers Payer name Policy type / Coverage type Policy ID Covered alliance party ID Covered alliance party's relationship to abdi Policy Abdi Plan Information [facility] [id number] [facility] [id number] [facility] [id number] MVP (pr) Commercial [id number] Self MVP (pr) Commercial [id number] Self [id number] P[employer] Ins (WC) Workers Compensation [id number] Self [id number] Pma Ins (WC) Workers Compensation [id number] Self [id number] [facility]() Workers Compensation [id number] Self [id number] [facility] Ins () Workers Compensation [id number] ANSI-Commercial [id number] ANSI-Commercial [id number] ANSI-Commercial [id number] ANSI-Commercial [id number] SELF PAY ONLY [id number] SP [id number] ANSI-Commercial [id number] ANSI-Commercial [id number] ANSI-Commercial [id number] ANSI-Commercial [id number] ANSI-Commercial [id number] [facility] [id number] [employer]CELL[employer] BCBS B [id number] S VYA [id number] MEDICAID [id number] SP [id number] [facility] O [id number] S [id number] [facility] Commercial [id number] Self [id number] [facility] Commercial [id number] Self [id number] [facility] [id number] SP [id number] [place]BS [place] P[place] 302/307 [id number] SP [id number] BCBS [employer] [id number] SP [id number] [place] PPO 302/307 [id number] SP [id number] [employer] BCBS B [id number] S VYA [id number] [facility] [id number] SP [id number] BCBS OF [place] 306/806 [id number] SP [id number] [facility] [id number] [facility] [id number] [facility] [id number] [facility] [id number] Problems, Conditions, and Diagnoses Code Display Name Description Problem Type Effective Dates Data Source(s) 50495990 Type 2 diabetes mellitus Type 2 diabetes mellitus Prob alen 03/08/2021 12:00:00 AM EDT MEDENT ([facility] ) M54.42 [id number] Lumbago with sciatica, left side Problem 05/11/2020 12:00:00 AM EDT eCW1 ([facility]) G89.29 [id number] Other chronic pain Problem 05/11/2020 12:00: 00 AM EDT eCW1 ([facility]) M54.41 [id number] Lumbago with sciatica, right side Prob alen 05/11/2020 12:00:00 AM EDT eCW1 ([facility]) Surgeries/Procedures Procedure Description Date Indications Data Source(s) RADEX SPINE CRV COMPL W/OBLQ&FLEX&/XTN STDS 03/08/2021 12:00:00 AM EDT MEDENT ([facility] ) OFFICE OUTPATIENT NEW 30 MINUTES 03/08/2021 12:00:00 A M EDT MEDENT ([facility] ) Results ID Date Data Source [id number] 09/25/2020 12:00:00 AM EST eCW1 ([facility]) Name Value Range Interpretation Code Description Data Sfoi rce(s) Supporting Document(s) Microalbumin/Creatinine [Mass Ratio] in Urine 161.0 CREATININE, URINE eCW1 ([facility]) Albumin/Creatinine [Mass Ratio] in Urine 101.0 MALB URINE SIEMENS eCW1 ([facility]) Microalbumin/Creatinine [Ratio] in Urine 62.7 0.0-30.0 WINDY/CREAT RATIO eCW1 ([facility]) ID Date Data Source CBC with Auto Differential 09/25/2020 12:00:00 AM EST eCW1 ( [facility]) Name Value Range Interpretation Code Description Data Sofi rce(s) Supporting Document(s) 5.09 4.00-5.40 RED BLOOD COUNT eCW1 ([facility]) 7.0 4.0-10.0 WHITE BLOOD COUNT eCW1 ([facility]) 88.2 80.0-96.0 MEAN CORPUSCULAR VOLUME e CW1 ([facility]) 44.9 36.0-47.0 HEMATOCRIT eCW1 ([facility]) 15.4 12.0-15.5 HEMOGLOBIN eCW1 ([facility]) 11.7 11.5-14.5 RED CELL DISTRIBUTION WID TH eCW1 ([facility]) 30.3 27.0-33.0 MEAN CORPUSCULAR HEMOGLOB IN eCW1 ([facility]) 34.3 32.0-36.5 MEAN CORPUSCULAR HGB CONC eCW1 ([facility]) 253 150-450 PLATELET COUNT, AUTOMATED eCW1 ([facility]) 35.5 24.0-44.0 LYMPH % eCW1 ([facility]) 53.5 36.0-66.0 NEUTROPHILS % eCW1 ([facility]) 0.7 0.0-1.0 BASO % eCW1 ([facility]) 5.8 2.0-8.0 MONO % eCW1 ([facility]) 4.1 0.0-3.0 EOS % eCW1 ([facility]) 0.0 0-0 NUCLEATED RED BLOOD CELL % eCW 1 ([facility]) 0.4 0-3.0 IMMATURE GRANULOCYTE % eCW1 ([facility]) 3.7 1.5-8.5 NEUTROPHILS # eCW1 ([facility]) 2.5 1.5-5.0 LYMPH # eCW1 ([facility]) 0.3 0.0-0.5 EOS # eCW1 ([facility]) 0.4 0.0-0.8 MONO # eCW1 ([facility]) 0.1 0.0-0.2 BASO # eCW1 ([facility]) ID Date Data Source LIPID PANEL (CARDIAC RISK) 09/25/2020 12:00:00 AM EST eCW1 ( [facility]) Name Value Range Interpretation Code Description Data Sofi rce(s) Supporting Document(s) Cholesterol [Moles/volume] in Serum or Plasma 208 <200 CHOLESTEROL LEVEL eCW1 ([facility]) Triglyceride [Mass/volume] in Serum or Plasma by calculation 131 <150 TRIGLYCERIDES LEVEL eCW1 ([facility]) 153 NON-HDL-C eCW1 ([facility]) Cholesterol in LDL [Mass/volume] in Serum or Plasma by calculation 127 <100 LDL CHOLESTEROL eCW1 ([facility]) Cholesterol in HDL [Moles/volume] in Serum or Plasma 55 >40 HDL CHOLESTEROL eCW1 ([facility]) 3.781 <5 CHOLESTEROL RISK RATIO eCW1 ([facility]) ID Date Data Source [id number] 09/25/2020 12:00:00 AM EST eCW1 ([facility]) Name Value Range Interpretation Code Description Data Sofi rce(s) Supporting Document(s) Hemoglobin A1c/Hemoglobin.total in Blood 10.7 HEMOGLOBIN A1c eCW1 ([facility]) ID Date Data Source Comprehensive Metabolic Profile (CMP) 09/25/2020 12:00:00 AM EST eCW1 ([facility]) Name Value Range Interpretation Code Description Data Sofi rce(s) Supporting Document(s) 17 7-18 BLOOD UREA NITROGEN eCW1 ([facility]) 262 70-100 GLUCOSE, FASTING eCW1 ([facility]) 0.63 0.55-1.30 CREATININE FOR GFR eCW1 ([facility]) > 60.0 >51 GLOMERULAR FILTRATION RATE eCW 1 ([facility]) 4.3 3.5-5.1 POTASSIUM SERUM eCW1 ([facility]) 137 136-145 SODIUM LEVEL eCW1 ([facility]) 102 98-107 CHLORIDE LEVEL eCW1 ([facility]) 9.3 8.5-10.1 CALCIUM LEVEL eCW1 ([facility]) 29 21-32 CARBON DIOXIDE LEVEL eCW1 ([facility]) 9 7-37 AST/SGOT eCW1 ([facility]) 106 45-117 ALKALINE PHOSPHATASE eCW1 ([facility]) 18 12-78 ALT/SGPT eCW1 ([facility]) 7.0 6.4-8.2 TOTAL PROTEIN eCW1 ([facility]) 0.6 0.2-1.0 BILIRUBIN,TOTAL eCW1 ([facility]) 3.4 3.2-5.2 ALBUMIN eCW1 ([facility]) 0.9 1.2-2.2 ALBUMIN/GLOBULIN RATIO eCW1 ([facility]) ID Date Data Source [id number] 07/16/2020 12:00:00 AM EST [facility] Name Value Range Interpretation Code Description Data Sofi rce(s) Supporting Document(s) SARS coronavirus 2 RNA [Presence] in Res piratory specimen by ALLI with probe detection [facility] This lab was ordered by Mary Beth Melendez and reported by [employer]. ID Date Data Source [id number] 07/16/2020 12:00:00 AM EST [facility] Name Value Range Interpretation Code Description Data Sofi rce(s) Supporting Document(s) Carestart Rapid COVID Antigen Test [facility] This lab was reported by Mary Beth [facility] Procedure Social History Code Duration Value Status Description Data Source(s ) Smoking 09/28/2020 12:00:00 AM EST Never Smoker completed Never S moker eCW1 ([facility]) Smoking 09/28/2020 12:00:00 AM EST Never Smoker completed Never S moker eCW1 ([facility]) Smoking 09/28/2020 12:00:00 AM EST Never Smoker completed Never S moker eCW1 ([facility]) Vital Signs ID Date Data Source UNK Name Value Range Interpretation Code Description Data Source(s) Body weight 190.38 [lb_av] 190.38 [lb_av] MEDEN T ([facility]) Body temperature 96.9 [degF] 96.9 [degF] MEDENT ([facility]) Body mass index (BMI) [Ratio] 32.7 kg/m2 32.7 k g/m2 MEDENT ([facility]) Body height 64 [in_i] 64 [in_i] MEDENT ([facility]) 5'4" Heart rate 83 /min 83 /min eCW1 ([facility]) Body weight 198 [lb_av] 198 [lb_av] eCW1 ([facility]) Respiratory rate 18 /min 18 /min eCW1 ([facility]) Body height 65 [in_i] 65 [in_i] eCW1 ([facility]) Body mass index (BMI) [Ratio] 32.95 kg/m2 32.95 kg/m2 eCW1 ([facility] [facility] Body temperature 97.5 [degF] 97.5 [degF] eCW1 ( [facility]) Systolic blood pressure 108 mm[Hg] 108 mm[Hg] e CW1 ([facility], [facility]) Diastolic blood pressure 74 mm[Hg] 74 mm[Hg] eCW1 ([facility], [facility]) Body weight 199 [lb_av] 199 [lb_av] eCW1 ([facility]) Body height 65 [in_i] 65 [in_i] eCW1 ([facility]) Body mass index (BMI) [Ratio] 33.11 kg/m2 33.11 kg/m2 eCW1 ([facility], [facility]) Heart rate 89 /min 89 /min eCW1 ([facility]) Respiratory rate 18 /min 18 /min eCW1 ([facility]) Body temperature 96.8 [degF] 96.8 [degF] eCW1 ( [facility], [facility]) Systolic blood pressure 110 mm[Hg] 110 mm[Hg] e CW1 ([facility], [facility]) Diastolic blood pressure 64 mm[Hg] 64 mm[Hg] eCW1 ([facility], [facility]) Patient Treatment Plan of Care Planned Activity Planned Date Details Description Data Source (s) Metformin hydrochloride 1000 MG Oral Tablet 02/20/2021 12:00:00 AM EDT eCW1 ([facility], [facility]) [place] 31G X 5 MM 09/28/2020 12:00:00 AM EST eCW1 ([facility], [facility]) atorvastatin 40 MG Oral Tablet 09/28/2020 12:00:00 AM EST eCW1 ([facility], [facility]) [place] 31G X 5 MM 09/28/2020 12:00:00 AM EST eCW1 ([facility], [facility]) atorvastatin 40 MG Oral Tablet 09/28/2020 12:00:00 AM EST eCW1 ([facility], [facility]) Cyclobenzaprine hydrochloride 5 MG Oral Tablet 08/13/2020 12:00:00 AM EST eCW1 ([facility], [facility]) Cepacol Dual Relief 5-30-5 %-MG/SPRAY 07/30/2020 12:00:00 AM EST eCW1 ([facility], [facility]) Cepacol Dual Relief 5-30-5 %-MG/SPRAY 07/30/2020 12:00:00 AM EST eCW1 ([facility], [facility]) benzonatate 100 MG Oral Capsule [Kirby Miles] 07/30/2020 12: 00:00 AM EST eCW1 ([facility])
--- OUTSIDE RECORDS SUMMARY | 2021-06-02 15:42 | CCD ---
Author Author [facility] Organization [facility] Address Unknown Phone Unavailable Care Team Providers Care Principal Technical Architect Name Role Phone Navarro [facility] Unavailable [facility] Un[facility] Un[facility] Un[facility] Un[facility] Unavailable Unavailabl e Fish, [facility], PA-C Unavailable Unavailabl e Fish, [facility], PA-C Unavailable Unavailabl e Fish, [facility], PA-C Unavailable Unavailabl e Fish, [facility], PA-C Unavailable [facility] Un[facility] Un[facility] Unavailable Unavailabl e [facility], [facility] Unavailable Unavailabl e Fish, [facility], PA-C Unavailable Unavailabl e Fish, [facility], PA-C Unavailable Unavailabl e Fish, [facility], PA-C Unavailable Unavailabl e Fish, [facility], PA-C Unavailable Unavailabl e Fish, [facility], PA-C Unavailable Unavailabl e Fish, [facility], PA-C Unavailable Unavailabl e Fish, [facility], PA-C Unavailable Unavailabl e Fish, [facility], PA-C Unavailable Unavailabl e Fish, [facility], PA-C Unavailable Unavailabl e Fish, [facility], PA-C Unavailable Unavailabl e Fish, [facility], PA-C Unavailable Unavailabl e Fish, [facility], PA-C Unavailable Unavailabl e Fish, [facility], PA-C Unavailable Unavailabl e Fish, [facility], PA-C Unavailable Unavailabl e Fish, [facility], PA-C Unavailable Unavailabl e Fish, [facility], PA-C Unavailable Unavailabl e Fish, [facility], PA-C Unavailable Unavailabl e Fish, [facility], PA-C Unavailable Unavailabl e Fish, [facility], PA-C Unavailable Unavailabl e Fish, [facility], PA-C Unavailable Unavailabl e Fish, [facility], PA-C Unavailable Unavailabl e Fish, [facility], PA-C Unavailable Unavailabl e Re-disclosure Warning The [...] is protected by Article 27-F of the [facility] Public Health law. If you continue you may have access to information: Regarding HIV / AIDS; Provided by facilities licensed or operated by the [facility] Office of Mental Health; or Provided by the [facility] Office for People With Developmental Disabilities. If such information is present, then the following [facility] mandated warning applies: This information has been [...] law may result in a fine or senior living sentence or both. A general authorization for the release of medical or other information is NOT sufficient authorization for further disc losure. Family History Family Member Name Family Member Gender Family Member Status Date o f Status Description Data Source(s) Unknown Unknown Problem MEDENT ([facility]) Unknown Male Problem MEDENT ([facility] Unknown Female Problem MEDENT ([facility]) Unknown Female Problem MEDENT ([facility]) Unknown Female Problem MEDENT ([facility]) Encounters Encounter Providers Location Date Indications Data Source(s ) OFFICE OUTPATIENT NEW 30 MINUTES Attender: Svetlana STORY PA-C Physical Therapy 03/08/2021 10:30:00 AM EDT MEDENT ([facility]) Unknown [address] [facility] [place] [address] 02/18/2021 12:00:00 AM EDT eCW1 ([facility]) Unknown [address] [facility] [place] [address] 02/13/2021 12:00:00 AM EDT eCW1 ([facility]) Unknown [address] [facility] [place] [address] 10/31/2020 12:00:00 AM EDT eCW1 ([facility]) Outpatient [address] [facility] [place] [address] 09/28/2020 12:00:00 AM EST eCW1 ([facility]) [place] [address] [facility] [address] [place] [address] 09/06/2020 12:00:00 AM EST eCW1 ([facility]) [place] [address] [facility] [place] [address] 08/13/2020 12:00:00 AM EST eCW1 ([facility]) TeleMedicine Phone E/M by Phys 11-20 Min [address] [place] [address] 07/30/2020 12:00:00 AM EST eCW1 ([facility]) [place] [address] [facility] [place] [address] 07/30/2020 12:00:00 AM EST eCW1 ([facility]) [place] [address] [facility] [place] [address] 07/06/2020 12:00:00 AM EST eCW1 ([facility]) [place] [address] [facility] [place] [address] 05/11/2020 12:00:00 AM EDT eCW1 ([facility]) Immunizations Vaccine Date Status Description Data Source(s) COVID-19 VACCINE [email or web address] 05/22/2021 12:00:00 AM EDT completed [facility] Vaccine Series Complete: YESThis Data wa s Submitted to [facility] Via [employer]. COVID-19 VACCINE [email or web address] 05/01/2021 12:00:00 AM EDT completed [facility] Vaccine Series Complete: NOThis Data was Submitted to [facility] [employer]. Medications Medication Brand Name Start Date Product Form Dose Route Admi nistrative Instructions Pharmacy Instructions Status Indications Reaction Description Data Source(s) Methylprednisolone 4 MG Oral Tablet [Medrol] Medrol 12:00:00 AM EDT active MEDENT ( [facility] ) Metformin hydrochloride 1000 MG Oral Tablet metFORMIN HCl 1000 MG metFORMIN HCl 1000 MG 02/20/2021 12:00:00 AM EDT 1.0 {tablet_with_a_meal} active metFORMIN HCl 1000 MG eCW1 ([facility]) atorvastatin 40 MG Oral Tablet Atorvastatin Calcium 40 MG Atorvastatin Calcium 40 MG 09/28/2020 12:00:00 AM EST 1.0 {tablet} activ e Atorvastatin Calcium 40 MG eCW1 ([facility]) atorvastatin 40 MG Oral Tablet Atorvastatin Calcium 40 MG Atorvastatin Calcium 40 MG 09/28/2020 12:00:00 AM EST 1.0 {tablet} activ e Atorvastatin Calcium 40 MG eCW1 ([facility]) atorvastatin 40 MG Oral Tablet Atorvastatin Calcium 40 MG Atorvastatin Calcium 40 MG 09/28/2020 12:00:00 AM EST 1.0 {tablet} activ e Atorvastatin Calcium 40 MG eCW1 ([facility]) [place] 31G X 5 MM [place] 31G X 5 MM 09/28/2020 12:00:[address] active [place] 31G X 5 MM eC W1 ([facility]) [place] 31G X 5 MM [place] 31G X 5 MM 09/28/2020 12:00:[address] active [place] 31G X 5 MM eC W1 ([facility]) [place] 31G X 5 MM [place] 31G X 5 MM 09/28/2020 12:00:[address] active [place] 31G X 5 MM eC W1 ([facility]) atorvastatin 40 MG Oral Tablet Atorvastatin Calcium 40 MG Atorvastatin Calcium 40 MG 09/28/2020 12:00:00 AM EST 1.0 {tablet} activ e Atorvastatin Calcium 40 MG eCW1 ([facility]) atorvastatin 40 MG Oral Tablet Atorvastatin Calcium 40 MG Atorvastatin Calcium 40 MG 09/28/2020 12:00:00 AM EST 1.0 {tablet} activ e Atorvastatin Calcium 40 MG eCW1 ([facility]) [place] 31G X 5 MM [place] 31G X 5 MM 09/28/2020 12:00:[address] active [place] 31G X 5 MM eC W1 ([facility]) [place] 31G X 5 MM [place] 31G X 5 MM 09/28/2020 12:00:[address] active [place] 31G X 5 MM eC W1 ([facility]) [place] 31G X 5 MM [place] 31G X 5 MM 09/28/2020 12:00:[address] active [place] 31G X 5 MM eC W1 ([facility]) atorvastatin 40 MG Oral Tablet Atorvastatin Calcium 40 MG Atorvastatin Calcium 40 MG 09/28/2020 12:00:00 AM EST 1.0 {tablet} activ e Atorvastatin Calcium 40 MG eCW1 ([facility]) Cyclobenzaprine hydrochloride 5 MG Oral Tablet Cyclobe nzaprine HCl 5 MG Cyclobenzaprine HCl 5 MG 08/13/2020 12:00:00 AM EST 1.0 {tablet_at_bedtime_as_needed} active Cy clobenzaprine HCl 5 MG eCW1 ([facility]) benzonatate 100 MG Oral Capsule [Tessalon Perles] Yue arun Perles 100 MG Tessalon Perles 100 MG 07/30/2020 12:00:00 AM EST 1.0 {capsule_as_nee ded} active Tessalon Perles 100 MG eCW1 ([facility]) Cepacol Dual Relief 5-30-5 %-MG/SPRAY Cepacol Dual Relief 5- 30-5 %-MG/SPRAY 07/30/2020 12:00:00 AM EST active Cepacol Dual Relief 5-30-5 %-MG/SPRAY eCW1 ([facility]) benzonatate 100 MG Oral Capsule [Tessalon Perles] Yue arun Perles 100 MG Tessalon Perles 100 MG 07/30/2020 12:00:00 AM EST 1.0 {capsule_as_nee ded} active Tessalon Perles 100 MG eCW1 ([facility]) Cepacol Dual Relief 5-30-5 %-MG/SPRAY Cepacol Dual Relief 5- 30-5 %-MG/SPRAY 07/30/2020 12:00:00 AM EST active Cepacol Dual Relief 5-30-5 %-MG/SPRAY eCW1 ([facility]) benzonatate 100 MG Oral Capsule [Tessalon Perles] Yue arun Perles 100 MG Tessalon Perles 100 MG 07/30/2020 12:00:00 AM EST 1.0 {capsule_as_nee ded} active Tessalon Perles 100 MG eCW1 ([facility]) benzonatate 100 MG Oral Capsule [Tessalon Perles] Yue arun Perles 100 MG Tessalon Perles 100 MG 07/30/2020 12:00:00 AM EST 1.0 {capsule_as_nee ded} active Tessalon Perles 100 MG eCW1 ([facility]) Cepacol Dual Relief 5-30-5 %-MG/SPRAY Cepacol Dual Relief 5- 30-5 %-MG/SPRAY 07/30/2020 12:00:00 AM EST active Cepacol Dual Relief 5-30-5 %-MG/SPRAY eCW1 ([facility]) benzonatate 100 MG Oral Capsule [Tessalon Perles] Yue arun Perles 100 MG Tessalon Perles 100 MG 07/30/2020 12:00:00 AM EST 1.0 {capsule_as_nee ded} active Tessalon Perles 100 MG eCW1 ([facility]) Cepacol Dual Relief 5-30-5 %-MG/SPRAY Cepacol Dual Relief 5- 30-5 %-MG/SPRAY 07/30/2020 12:00:00 AM EST active Cepacol Dual Relief 5-30-5 %-MG/SPRAY eCW1 ([facility]) benzonatate 100 MG Oral Capsule [Tessalon Perles] Yue arun Perles 100 MG Tessalon Perles 100 MG 07/30/2020 12:00:00 AM EST 1.0 {capsule_as_nee ded} active Tessalon Perles 100 MG eCW1 ([facility]) benzonatate 100 MG Oral Capsule [Tessalon Perles] Yue arun Perles 100 MG Tessalon Perles 100 MG 07/30/2020 12:00:00 AM EST 1.0 {capsule_as_nee ded} active Tessalon Perles 100 MG eCW1 ([facility]) benzonatate 100 MG Oral Capsule [Tessalon Perles] Yue arun Perles 100 MG Tessalon Perles 100 MG 07/30/2020 12:00:00 AM EST 1.0 {capsule_as_nee ded} active Tessalon Perles 100 MG eCW1 ([facility]) Cepacol Dual Relief 5-30-5 %-MG/SPRAY Cepacol Dual Relief 5- 30-5 %-MG/SPRAY 07/30/2020 12:00:00 AM EST active Cepacol Dual Relief 5-30-5 %-MG/SPRAY eCW1 ([facility]) Cepacol Dual Relief 5-30-5 %-MG/SPRAY Cepacol Dual Relief 5- 30-5 %-MG/SPRAY 07/30/2020 12:00:00 AM EST active Cepacol Dual Relief 5-30-5 %-MG/SPRAY eCW1 ([facility]) Cepacol Dual Relief 5-30-5 %-MG/SPRAY Cepacol Dual Relief 5- 30-5 %-MG/SPRAY 07/30/2020 12:00:00 AM EST active Cepacol Dual Relief 5-30-5 %-MG/SPRAY eCW1 ([facility]) Cepacol Dual Relief 5-30-5 %-MG/SPRAY Cepacol Dual Relief 5- 30-5 %-MG/SPRAY 07/30/2020 12:00:00 AM EST active Cepacol Dual Relief 5-30-5 %-MG/SPRAY eCW1 ([facility]) Insurance Providers Payer name Policy type / Coverage type Policy ID Covered constitution party ID Covered constitution party's relationship to abdi Policy Abdi Plan Information [facility] [id number] [facility] [id number] [facility] [id number] MVP (pr) Commercial [id number] Self MVP (pr) Commercial [id number] Self [id number] [employer] (WC) Workers Compensation [id number] Self [id number] [employer] Ins (WC) Workers Compensation [id number] Self [id number] [facility]() Workers Compensation [id number] Self [id number] [facility] Ins () Workers Compensation [id number] ANSI-Commercial [id number] ANSI-Commercial [id number] ANSI-Commercial [id number] ANSI-Commercial [id number] SELF PAY ONLY [id number] SP [id number] ANSI-Commercial [id number] ANSI-Commercial [id number] ANSI-Commercial [id number] ANSI-Commercial [id number] ANSI-Commercial [id number] [facility] [id number] [employer]BS B [id number] S VYA [id number] MEDICAID [id number] SP [id number] [facility] O [id number] S [id number] [facility] Commercial [id number] Self [id number] [facility] Commercial [id number] Self [id number] [facility] [id number] SP [id number] [employer]BS [place] PPO 302/307 [id number] SP [id number] BCBS [employer] [id number] SP [id number] [employer] [place] PPO 302/307 [id number] SP [id number] [employer] B [id number] S VYA [id number] [facility] [id number] SP [id number] BCBS [place] 306/806 [id number] SP [id number] [facility] [id number] [facility] [id number] [facility] [id number] [employer] [id number] Problems, Conditions, and Diagnoses Code Display Name Description Problem Type Effective Dates Data Source(s) 29035682 Type 2 diabetes mellitus Type 2 diabetes mellitus Prob alen 03/08/2021 12:00:00 AM EDT MEDENT ([facility] ) M54.42 [id number] Lumbago with sciatica, left side Problem 05/11/2020 12:00:00 AM EDT eCW1 ([facility]) G89.29 [id number] Other chronic pain Problem 05/11/2020 12:00: 00 AM EDT eCW1 ([facility]) M54.41 [id number] Lumbago with sciatica, right side Prob alen 05/11/2020 12:00:00 AM EDT eCW1 ([facility]) Surgeries/Procedures Procedure Description Date Indications Data Source(s) RADEX SPINE CRV COMPL W/OBLQ&FLEX&/XTN STDS 03/08/2021 12:00:00 AM EDT MEDENT ([facility] ) OFFICE OUTPATIENT NEW 30 MINUTES 03/08/2021 12:00:00 A M EDT MEDENT ([facility] ) Results ID Date Data Source [id number] 09/25/2020 12:00:00 AM EST eCW1 ([facility]) Name Value Range Interpretation Code Description Data Sofi rce(s) Supporting Document(s) Microalbumin/Creatinine [Mass Ratio] in Urine 161.0 CREATININE, URINE eCW1 ([facility]) Albumin/Creatinine [Mass Ratio] in Urine 101.0 MALB URINE SIEMENS eCW1 ([facility]) Microalbumin/Creatinine [Ratio] in Urine 62.7 0.0-30.0 WINDY/CREAT RATIO eCW1 ([facility]) ID Date Data Source CBC with Auto Differential 09/25/2020 12:00:00 AM EST eCW1 ( [facility]) Name Value Range Interpretation Code Description Data Sofi rce(s) Supporting Document(s) 5.09 4.00-5.40 RED BLOOD COUNT eCW1 ([facility]) 7.0 4.0-10.0 WHITE BLOOD COUNT eCW1 ([facility]) 88.2 80.0-96.0 MEAN CORPUSCULAR VOLUME e CW1 ([facility]) 44.9 36.0-47.0 HEMATOCRIT eCW1 ([facility]) 15.4 12.0-15.5 HEMOGLOBIN eCW1 ([facility]) 11.7 11.5-14.5 RED CELL DISTRIBUTION WID TH eCW1 ([facility]) 30.3 27.0-33.0 MEAN CORPUSCULAR HEMOGLOB IN eCW1 ([facility]) 34.3 32.0-36.5 MEAN CORPUSCULAR HGB CONC eCW1 ([facility]) 253 150-450 PLATELET COUNT, AUTOMATED eCW1 ([facility]) 35.5 24.0-44.0 LYMPH % eCW1 ([facility]) 53.5 36.0-66.0 NEUTROPHILS % eCW1 ([facility]) 0.7 0.0-1.0 BASO % eCW1 ([facility]) 5.8 2.0-8.0 MONO % eCW1 ([facility]) 4.1 0.0-3.0 EOS % eCW1 ([facility]) 0.0 0-0 NUCLEATED RED BLOOD CELL % eCW 1 ([facility]) 0.4 0-3.0 IMMATURE GRANULOCYTE % eCW1 ([facility]) 3.7 1.5-8.5 NEUTROPHILS # eCW1 ([facility]) 2.5 1.5-5.0 LYMPH # eCW1 ([facility]) 0.3 0.0-0.5 EOS # eCW1 ([facility]) 0.4 0.0-0.8 MONO # eCW1 ([facility]) 0.1 0.0-0.2 BASO # eCW1 ([facility]) ID Date Data Source LIPID PANEL (CARDIAC RISK) 09/25/2020 12:00:00 AM EST eCW1 ( [facility]) Name Value Range Interpretation Code Description Data Sofi rce(s) Supporting Document(s) Cholesterol [Moles/volume] in Serum or Plasma 208 <200 CHOLESTEROL LEVEL eCW1 ([facility]) Triglyceride [Mass/volume] in Serum or Plasma by calculation 131 <150 TRIGLYCERIDES LEVEL eCW1 ([facility]) 153 NON-HDL-C eCW1 ([facility]) Cholesterol in LDL [Mass/volume] in Serum or Plasma by calculation 127 <100 LDL CHOLESTEROL eCW1 ([facility]) Cholesterol in HDL [Moles/volume] in Serum or Plasma 55 >40 HDL CHOLESTEROL eCW1 ([facility]) 3.781 <5 CHOLESTEROL RISK RATIO eCW1 ([facility]) ID Date Data Source [id number] 09/25/2020 12:00:00 AM EST eCW1 ([facility]) Name Value Range Interpretation Code Description Data Sofi rce(s) Supporting Document(s) Hemoglobin A1c/Hemoglobin.total in Blood 10.7 HEMOGLOBIN A1c eCW1 ([facility]) ID Date Data Source Comprehensive Metabolic Profile (CMP) 09/25/2020 12:00:00 AM EST eCW1 ([facility]) Name Value Range Interpretation Code Description Data Sofi rce(s) Supporting Document(s) 17 7-18 BLOOD UREA NITROGEN eCW1 ([facility]) 262 70-100 GLUCOSE, FASTING eCW1 ([facility]) 0.63 0.55-1.30 CREATININE FOR GFR eCW1 ([facility]) > 60.0 >51 GLOMERULAR FILTRATION RATE eCW 1 ([facility]) 4.3 3.5-5.1 POTASSIUM SERUM eCW1 ([facility]) 137 136-145 SODIUM LEVEL eCW1 ([facility]) 102 98-107 CHLORIDE LEVEL eCW1 ([facility]) 9.3 8.5-10.1 CALCIUM LEVEL eCW1 ([facility]) 29 21-32 CARBON DIOXIDE LEVEL eCW1 ([facility]) 9 7-37 AST/SGOT eCW1 ([facility]) 106 45-117 ALKALINE PHOSPHATASE eCW1 ([facility]) 18 12-78 ALT/SGPT eCW1 ([facility]) 7.0 6.4-8.2 TOTAL PROTEIN eCW1 ([facility]) 0.6 0.2-1.0 BILIRUBIN,TOTAL eCW1 ([facility]) 3.4 3.2-5.2 ALBUMIN eCW1 ([facility]) 0.9 1.2-2.2 ALBUMIN/GLOBULIN RATIO eCW1 ([facility]) ID Date Data Source [id number] 07/16/2020 12:00:00 AM EST [facility] Name Value Range Interpretation Code Description Data Sofi rce(s) Supporting Document(s) SARS coronavirus 2 RNA [Presence] in Res piratory specimen by ALLI with probe detection [facility] This lab was ordered by Mary Beth Melendez and reported by Press. ID Date Data Source [id number] 07/16/2020 12:00:00 AM EST [facility] Name Value Range Interpretation Code Description Data Sofi rce(s) Supporting Document(s) Carestart Rapid COVID Antigen Test [facility] This lab was reported by Mary Beth [facility]. Procedure Social History Code Duration Value Status Description Data Source(s ) Smoking 09/28/2020 12:00:00 AM EST Never Smoker completed Never S moker eCW1 ([facility]) Smoking 09/28/2020 12:00:00 AM EST Never Smoker completed Never S moker eCW1 ([facility]) Smoking 09/28/2020 12:00:00 AM EST Never Smoker completed Never S moker eCW1 ([facility]) Vital Signs ID Date Data Source UNK Name Value Range Interpretation Code Description Data Source(s) Body temperature 96.9 [degF] 96.9 [degF] MEDENT ([facility]) Body weight 190.38 [lb_av] 190.38 [lb_av] MEDEN T ([facility]) Body mass index (BMI) [Ratio] 32.7 kg/m2 32.7 k g/m2 MEDENT ([facility]) Body height 64 [in_i] 64 [in_i] MEDENT ([facility]) 5'4" Diastolic blood pressure 74 mm[Hg] 74 mm[Hg] eCW1 ([facility]) Body weight 198 [lb_av] 198 [lb_av] eCW1 ([facility]) Heart rate 83 /min 83 /min eCW1 ([facility]) Respiratory rate 18 /min 18 /min eCW1 ([facility]) Body temperature 97.5 [degF] 97.5 [degF] eCW1 ( [facility]) Systolic blood pressure 108 mm[Hg] 108 mm[Hg] e CW1 ([facility]) Body height 65 [in_i] 65 [in_i] eCW1 ([facility]) Body mass index (BMI) [Ratio] 32.95 kg/m2 32.95 kg/m2 eCW1 ([facility]) Body weight 199 [lb_av] 199 [lb_av] eCW1 ([facility]) Body height 65 [in_i] 65 [in_i] eCW1 ([facility]) Body mass index (BMI) [Ratio] 33.11 kg/m2 33.11 kg/m2 eCW1 ([facility]) Heart rate 89 /min 89 /min eCW1 ([facility]) Respiratory rate 18 /min 18 /min eCW1 ([facility]) Body temperature 96.8 [degF] 96.8 [degF] eCW1 ( [facility]) Systolic blood pressure 110 mm[Hg] 110 mm[Hg] e CW1 ([facility]) Diastolic blood pressure 64 mm[Hg] 64 mm[Hg] eCW1 ([facility]) Patient Treatment Plan of Care Planned Activity Planned Date Details Description Data Source (s) Metformin hydrochloride 1000 MG Oral Tablet 02/20/2021 12:00:00 AM EDT eCW1 ([facility]) [place] 31G X 5 MM 09/28/2020 12:00:00 AM EST eCW1 ([facility]) atorvastatin 40 MG Oral Tablet 09/28/2020 12:00:00 AM EST eCW1 ([facility]) [place] 31G X 5 MM 09/28/2020 12:00:00 AM EST eCW1 ([facility]) atorvastatin 40 MG Oral Tablet 09/28/2020 12:00:00 AM EST eCW1 ([facility]) Cyclobenzaprine hydrochloride 5 MG Oral Tablet 08/13/2020 12:00:00 AM EST eCW1 ([facility]) Cepacol Dual Relief 5-30-5 %-MG/SPRAY 07/30/2020 12:00:00 AM EST eCW1 ([facility]) Cepacol Dual Relief 5-30-5 %-MG/SPRAY 07/30/2020 12:00:00 AM EST eCW1 ([facility]) benzonatate 100 MG Oral Capsule [Kirby Miles] 07/30/2020 12: 00:00 AM EST eCW1 ([facility])
[2021-06-02 16:43] LABS: RSV AMPLIFICATION NEGATIVE (NEGATIVE)
[2021-06-02] MEDS ORDERED: MOME50SP NARES (17:33)
[2021-06-02] MEDS ORDERED: CLAR10CA3 PO (17:33)
== END 2021-06-02 17:53 | disposition home or self-care (01) ==
LOC: M ED 14:55
DX: J06.9 Acute upper respiratory infection, unspecified (principal); E10.9 Type 1 diabetes mellitus without complications; I10 Essential (primary) hypertension; E78.5 Hyperlipidemia, unspecified; J45.909 Unspecified asthma, uncomplicated; K21.9 Gastro-esophageal reflux disease without esophagitis; Z88.2 Allergy status to sulfonamides; Z91.040 Latex allergy status; Z79.899 Other long term (current) drug therapy; Z79.4 Long term (current) use of insulin

== ENCOUNTER 2021-07-24 10:42 | Emergency (ER) | payer BC ==
[~2021-07-24] VITALS: Ht 165.1 cm; Wt 90.0 kg
[~2021-07-24 10:42] MED LIST changes: +CLAR10CA3 PO; +MOME50SP NARES
[2021-07-24] MEDS ORDERED: LIDOCAINE 4% CREAM 5GM (LMX4) TOP ONE (15:20)
[2021-07-24] MEDS ORDERED: ACETAMINOPHEN 500 MG TAB PO ONE (15:20)
[2021-07-24 16:56] VITALS: BP 153/90
[2021-07-24] MEDS ORDERED: KETOROLAC 60MG 2ML VIAL IM ONE (17:25)
[2021-07-24] MEDS ORDERED: NAPR-837 PO (17:47)
[2021-07-24] MEDS ORDERED: ANEC4CRE3 TOP (17:47)
== END 2021-07-24 18:30 | disposition home or self-care (01) ==
LOC: M ED 10:42
DX: M75.21 Bicipital tendinitis, right shoulder (principal); M79.621 Pain in right upper arm; E11.9 Type 2 diabetes mellitus without complications; J45.909 Unspecified asthma, uncomplicated; E78.5 Hyperlipidemia, unspecified; K21.9 Gastro-esophageal reflux disease without esophagitis; Z88.2 Allergy status to sulfonamides; Z91.040 Latex allergy status; Z79.4 Long term (current) use of insulin; Z79.899 Other long term (current) drug therapy
CPT/HCPCS: 73030; 93971; 96372; 99283; J1885

== ENCOUNTER → 2022-01-22 | Outpatient (REF) | payer OTHER ==
[~2022-01-22] MED LIST changes: +ANEC4CRE3 TOP; -LISI-898 PO; -LISI10TA15 PO; +LISI10TA24 PO; +LISI5TAB11 PO; -MOME50SP NARES; +NAPR-837 PO; +NASO50SP3 NARES
== END ==
LOC: M LAB REF 16:15
PROVIDERS: ATTEND Physician Assistant
DX: R50.9 Fever, unspecified (principal)

== ENCOUNTER 2022-02-09 07:27 | Emergency (ER) | payer OTHER ==
[~2022-02-09] VITALS: Ht 165.1 cm; Wt 86.8 kg
[2022-02-09 08:32] LABS: RSV AMPLIFICATION NEGATIVE (NEGATIVE)
[2022-02-09] MEDS ORDERED: COMBIVENT RESPIMAT 100-20MCG INHALER 4GM INH ONE (09:10)
[2022-02-09 10:05] VITALS: BP 135/85
== END 2022-02-09 10:07 | disposition home or self-care (01) ==
LOC: M ED 07:27
DX: J06.9 Acute upper respiratory infection, unspecified (principal); E11.9 Type 2 diabetes mellitus without complications; I10 Essential (primary) hypertension; J45.909 Unspecified asthma, uncomplicated; E78.5 Hyperlipidemia, unspecified; Z79.899 Other long term (current) drug therapy; Z79.84 Long term (current) use of oral hypoglycemic drugs; Z79.4 Long term (current) use of insulin; Z88.1 Allergy status to other antibiotic agents; Z88.2 Allergy status to sulfonamides; Z88.5 Allergy status to narcotic agent; Z91.040 Latex allergy status; Z91.048 Other nonmedicinal substance allergy status

== ENCOUNTER 2022-10-27 04:07 | Emergency (ER) | payer OTHER, SELFPAY ==
[~2022-10-27] VITALS: Ht 165.1 cm; Wt 88.2 kg
[~2022-10-27 04:07] MED LIST changes: +INSU100I6 SC; -LEVE1INJ5 SC
[2022-10-27] MEDS ORDERED: D-ME1CAP36 PO (04:18)
[2022-10-27] MEDS ORDERED: COLD1MIS PO (04:18)
[2022-10-27 08:20] VITALS: BP 152/88
[2022-10-27] MEDS ORDERED: BENZ200C70 PO (08:22)
[2022-10-27] MEDS ORDERED: AMOX875T2 PO (08:22)
== END 2022-10-27 09:01 | disposition home or self-care (01) ==
LOC: M ED 04:07
DX: J01.00 Acute maxillary sinusitis, unspecified (principal); R09.81 Nasal congestion

== ENCOUNTER → 2023-07-22 | Outpatient (REF) | payer OTHER ==
[~2023-07-22] MED LIST changes: +AMOX875T2 PO; +BENZ200C70 PO; +COLD1MIS PO; +D-ME1CAP36 PO
== END ==
LOC: M SFHCPLAZ 12:59
PROVIDERS: ATTEND Student in an Organized Health Care Education/Training Program
DX: R05.1 Acute cough (principal)

== ENCOUNTER → 2023-07-23 | Outpatient (REF) | payer OTHER | LOC: M SFHCPLAZ 07-22 09:08 | PROVIDERS: ATTEND Student in an Organized Health Care Education/Training Program | DX: R19.7 Diarrhea, unspecified (principal) ==

== ENCOUNTER → 2024-01-12 | Outpatient (REF) | payer OTHER ==
[~2024-01-12] MED LIST changes: +ESOM1CAP20 PO; -ESOM1CAP5 PO
== END ==
LOC: M SFHCPLAZ 10:07
PROVIDERS: ATTEND Family Medicine
DX: Z00.00 Encounter for general adult medical examination without abnormal findings (principal); Z13.1 Encounter for screening for diabetes mellitus; Z13.220 Encounter for screening for lipoid disorders; Z01.84 Encounter for antibody response examination

== ENCOUNTER → 2024-01-13 | Outpatient (REF) | payer OTHER | LOC: M SFHCPLAZ 00:51 | PROVIDERS: ATTEND Family Medicine | DX: Z00.00 Encounter for general adult medical examination without abnormal findings (principal); Z13.1 Encounter for screening for diabetes mellitus; Z13.220 Encounter for screening for lipoid disorders; Z01.84 Encounter for antibody response examination ==

== ENCOUNTER → 2024-01-14 | Outpatient (CLI) | payer OTHER ==
[2024-01-14 07:39] LABS: BASO # 0.1 10^3/uL (0.0-0.2); BASO % 0.7 % (0.0-1.0); EOS # 0.4 10^3/uL (0.0-0.5); EOS % 4.8 % (0.0-3.0); HEMATOCRIT 40.8 % (36.0-47.0); HEMOGLOBIN 14.6 g/dl (12.0-15.5); LYMPH # 3.2 10^3/uL (1.5-5.0); LYMPH % 37.6 % (24.0-44.0); MEAN CORPUSCULAR HGB CONC 35.8 g/dl (32.0-36.5); MEAN CORPUSCULAR VOLUME 86.6 fl (80.0-96.0); MONO # 0.5 10^3/uL (0.0-0.8); MONO % 6.4 % (2.0-8.0); NEUTROPHILS # 4.2 10^3/uL (1.5-8.5); NEUTROPHILS % 49.7 % (36.0-66.0); PLATELET COUNT, AUTOMATED 305 10^3/uL (150-450); RED BLOOD COUNT 4.71 10^6/uL (4.00-5.40); WHITE BLOOD COUNT 8.4 10^3/uL (4.0-10.0)
[2024-01-14 08:02] LABS: ALBUMIN 3.1 G/DL (3.2-5.2); ALKALINE PHOSPHATASE 111 U/L (46-116); ALT/SGPT 18 U/L (7.0-40); AST/SGOT < 8 U/L (<34); BILIRUBIN,TOTAL 0.5 MG/DL (0.3-1.2); BLOOD UREA NITROGEN 13 MG/DL (9-23); CALCIUM LEVEL 9.2 MG/DL (8.5-10.1); CARBON DIOXIDE LEVEL 28 MMOL/L (20-31); CHLORIDE LEVEL 102 MMOL/L (98-107); CHOLESTEROL LEVEL 204 MG/DL (<200); CREATININE FOR GFR 0.53 MG/DL (0.55-1.30); GLOMERULAR FILTRATION RATE > 60.0 (>51); GLUCOSE, FASTING 360 MG/DL (60-100); HDL CHOLESTEROL 52.3 MG/DL (>40); LDL CHOLESTEROL 118.5 MG/DL (<100); NON-HDL-C 151.7 MG/DL; POTASSIUM SERUM 4.1 MMOL/L (3.5-5.1); SODIUM LEVEL 136 MMOL/L (136-145); TOTAL PROTEIN 6.7 G/DL (5.7-8.2); TRIGLYCERIDES LEVEL 166 MG/DL (<150)
[2024-01-14 08:04] LABS: HEMOGLOBIN A1c 13.8 % (4.0-6.0)
[2024-01-18 14:27] LABS: QuantiFERON-TB Gold Plus NEGATIVE (NEGATIVE)
== END ==
LOC: M LAB 06:58
PROVIDERS: ATTEND Student in an Organized Health Care Education/Training Program
DX: Z00.00 Encounter for general adult medical examination without abnormal findings (principal); Z01.84 Encounter for antibody response examination; Z13.1 Encounter for screening for diabetes mellitus; Z13.220 Encounter for screening for lipoid disorders

== ENCOUNTER 2024-01-23 08:38 | Emergency (ER) | payer OTHER | END 2024-01-23 11:23 | disposition left against medical advice (07) | LOC: M ED 08:38 | DX: Z53.21 Procedure and treatment not carried out due to patient leaving prior to being seen by health care provider (principal) ==

== ENCOUNTER 2024-05-24 08:23 | Emergency (ER) | payer OTHER ==
[~2024-05-24] VITALS: Ht 165.1 cm; Wt 84.1 kg
[~2024-05-24 08:23] MED LIST changes: -CYCL5TAB PO; +CYCL5TAB4 PO
[2024-05-24 10:53] LABS: VENOUS BASE EXCESS 1.1 (-2.0-2.0); VENOUS HCO3 27.3 MMOL/L (23.0-27.0); VENOUS O2 SATURATION 62.7 % (60.0-80.0); VENOUS PARTIAL PRESSURE CO2 49.6 mmHg (38.0-50.0); VENOUS PARTIAL PRESSURE O2 30.9 mmHg (30.0-50.0); VENOUS PH 7.359 UNITS (7.330-7.430); VENOUS STANDARD HCO3 24.6 MMOL/L; VENOUS TOTAL CO2 28.9 MMOL/L (24.0-28.0)
[2024-05-24 10:59] LABS: BASO % 0.7 % (0.0-1.0); EOS # 0.2 10^3/uL (0.0-0.5); EOS % 3.5 % (0.0-3.0); HEMATOCRIT 38.2 % (36.0-47.0); HEMOGLOBIN 13.6 g/dl (12.0-15.5); LYMPH # 1.9 10^3/uL (1.5-5.0); LYMPH % 31.4 % (24.0-44.0); MEAN CORPUSCULAR HEMOGLOBIN 30.5 pg (27.0-33.0); MEAN CORPUSCULAR HGB CONC 35.6 g/dl (32.0-36.5); MEAN CORPUSCULAR VOLUME 85.7 fl (80.0-96.0); MONO # 0.6 10^3/uL (0.0-0.8); MONO % 9.7 % (2.0-8.0); NEUTROPHILS # 3.2 10^3/uL (1.5-8.5); NEUTROPHILS % 53.9 % (36.0-66.0); PLATELET COUNT, AUTOMATED 251 10^3/uL (150-450); RED BLOOD COUNT 4.46 10^6/uL (4.00-5.40)
[2024-05-24 11:20] LABS: BLOOD UREA NITROGEN 8 MG/DL (9-23); CALCIUM LEVEL 8.8 MG/DL (8.5-10.1); CARBON DIOXIDE LEVEL 29 MMOL/L (20-31); CHLORIDE LEVEL 103 MMOL/L (98-107); CREATININE FOR GFR 0.51 MG/DL (0.55-1.30); GLOMERULAR FILTRATION RATE > 60.0 (>51); GLUCOSE, FASTING 294 MG/DL (60-100); POTASSIUM SERUM 4.1 MMOL/L (3.5-5.1); SODIUM LEVEL 138 MMOL/L (136-145)
[2024-05-24] MEDS ORDERED: DOXY100C82 PO (11:31)
[2024-05-24 11:57] VITALS: BP 136/74; TEMP 97.7; O2SAT 98
== END 2024-05-24 12:04 | disposition home or self-care (01) ==
LOC: M ED 08:23
DX: J18.1 Lobar pneumonia, unspecified organism (principal); E11.9 Type 2 diabetes mellitus without complications; I10 Essential (primary) hypertension; J45.909 Unspecified asthma, uncomplicated; R51.9 Headache, unspecified; Z88.2 Allergy status to sulfonamides; Z88.5 Allergy status to narcotic agent; Z91.040 Latex allergy status; Z91.048 Other nonmedicinal substance allergy status; Z79.1 Long term (current) use of non-steroidal anti-inflammatories (NSAID); Z79.4 Long term (current) use of insulin; Z79.811 Long term (current) use of aromatase inhibitors; Z79.899 Other long term (current) drug therapy

== ENCOUNTER → 2025-02-22 | Outpatient (REF) | payer OTHER ==
[~2025-02-22] MED LIST changes: +DOXY-442 PO; +LIDO1ADH93 TOP
[2025-02-22 11:31] LABS: BASO # 0.1 10^3/uL (0.0-0.2); BASO % 0.6 % (0.0-1.0); EOS # 0.4 10^3/uL (0.0-0.5); EOS % 3.6 % (0.0-3.0); LYMPH # 2.7 10^3/uL (1.5-5.0); LYMPH % 22.8 % (24.0-44.0); MONO # 0.6 10^3/uL (0.0-0.8); MONO % 5.2 % (2.0-8.0); NEUTROPHILS # 8.1 10^3/uL (1.5-8.5); NEUTROPHILS % 67.1 % (36.0-66.0); PLATELET COUNT, AUTOMATED 302 10^3/uL (150-450)
[2025-02-22 11:36] LABS: TOTAL 25(OH) VITAMIN D 35.7 NG/ML (20.0-100.0)
[2025-02-22 11:48] LABS: ESTIMATED AVERAGE GLUCOSE 338.0 MG/DL (60-110)
[2025-02-22 13:16] LABS: CALCIUM LEVEL 9.6 MG/DL (8.5-10.1); CARBON DIOXIDE LEVEL 27 MMOL/L (20-31); CHLORIDE LEVEL 98 MMOL/L (98-107); CHOLESTEROL LEVEL 167 MG/DL (<200); CHOLESTEROL RISK RATIO 2.95 (<5); CREATININE FOR GFR 0.60 MG/DL (0.55-1.30); GLOMERULAR FILTRATION RATE > 90.0 (>51); LDL CHOLESTEROL 76.9 MG/DL (<100); NON-HDL-C 110.5 MG/DL; POTASSIUM SERUM 4.5 MMOL/L (3.5-5.1); SODIUM LEVEL 134 MMOL/L (136-145); TRIGLYCERIDES LEVEL 168 MG/DL (<150)
== END ==
LOC: M SFHCPLAZ 08:42
PROVIDERS: ATTEND Student in an Organized Health Care Education/Training Program
DX: Z00.00 Encounter for general adult medical examination without abnormal findings (principal)

== ENCOUNTER 2025-03-17 07:54 | Inpatient (IN) | payer OTHER ==
[~2025-03-17] VITALS: Ht 165.1 cm; Wt 82.7 kg
[2025-03-17] MEDS ORDERED: OMEP40CA5 PO (08:03)
[2025-03-17] MEDS ORDERED: ATOR40TA75 PO (08:03)
[2025-03-17] MEDS ORDERED: BASA100I SUBQ (08:03)
[2025-03-17] MEDS ORDERED: SEMA0.257 SUBQ (08:03)
[2025-03-17] MEDS: ONDANSETRON 4MG 2ML VIAL IV ONE (08:21)
[2025-03-17 08:29] LABS: BASO # 0.0 10^3/uL (0.0-0.2); BASO % 0.3 % (0.0-1.0); EOS # 0.1 10^3/uL (0.0-0.5); EOS % 0.6 % (0.0-3.0); LYMPH # 1.3 10^3/uL (1.5-5.0); LYMPH % 9.2 % (24.0-44.0); MONO # 0.9 10^3/uL (0.0-0.8); MONO % 6.5 % (2.0-8.0); NEUTROPHILS # 11.5 10^3/uL (1.5-8.5); NEUTROPHILS % 82.8 % (36.0-66.0); PLATELET COUNT, AUTOMATED 257 10^3/uL (150-450)
[2025-03-17 08:33] LABS: ERYTHROCYTE SEDIMENTATION RATE 65 mm/hr (0-30)
[2025-03-17 09:06] LABS: ALT/SGPT 16 U/L (7.0-40); AST/SGOT 22 U/L (<34); CALCIUM LEVEL 8.6 MG/DL (8.5-10.1); CARBON DIOXIDE LEVEL 25 MMOL/L (20-31); CHLORIDE LEVEL 101 MMOL/L (98-107); CREATININE FOR GFR 0.57 MG/DL (0.55-1.30); GLOMERULAR FILTRATION RATE > 90.0 (>51); POTASSIUM SERUM 3.9 MMOL/L (3.5-5.1); SODIUM LEVEL 138 MMOL/L (136-145)
[2025-03-17 09:29] LABS: C REACTIVE PROTEIN QUANTITATIV 17.24 MG/DL (<1.0)
[2025-03-17] MEDS: NS (Normal Saline) 0.9% 1,000 ML IV ONE (09:45)
[2025-03-17] MEDS: ACETAMINOPHEN *IV* 1,000 MG in IV 1 EA IV ONE (09:45)
[2025-03-17] MEDS ORDERED: METF-838 PO (11:36)
[2025-03-17] MEDS ORDERED: ACET-907 PO (11:36)
[2025-03-17] MEDS ORDERED: HOME MED LIST COMPLETE! XX SCH (11:40)
[2025-03-17] MEDS ORDERED: ONDANSETRON 4MG 2ML VIAL IV PRN (12:25)
[2025-03-17] MEDS: cefTRIAXone SOD 1 GM in DEXTROSE 5% (D5W) ADV/MINI-BAG 50 ML IV ONE (13:37)
[2025-03-17] MEDS: PANTOPRAZOLE 40MG VIAL IV SCH (14:59)
[2025-03-17] MEDS: DOXYCYCLINE HYCLATE 100 MG in DEXTROSE 5% (D5W) MINI-BAG PLU 100 ML IV ONE (15:00)
[2025-03-17 20:03] VITALS: BP 153/86; TEMP 97.7; O2SAT 94
[2025-03-17] MEDS: KETOROLAC 30 MG/ML 1 ML VIAL IV PRN (20:41)
[2025-03-17] MEDS: DOXYCYCLINE HYCLATE 100 MG TABLET PO SCH (20:41)
[2025-03-17] MEDS: INSULIN GLARGINE-YFGN 1 UNITS/0.01 ML SC SCH (21:12)
[2025-03-18 05:48] VITALS: BP 123/68; TEMP 97.7; O2SAT 98
[2025-03-18 07:39] LABS: BASO # 0.1 10^3/uL (0.0-0.2); BASO % 0.4 % (0.0-1.0); EOS # 0.1 10^3/uL (0.0-0.5); EOS % 1.0 % (0.0-3.0); LYMPH # 2.3 10^3/uL (1.5-5.0); LYMPH % 18.9 % (24.0-44.0); MONO # 1.0 10^3/uL (0.0-0.8); MONO % 8.0 % (2.0-8.0); NEUTROPHILS # 8.5 10^3/uL (1.5-8.5); NEUTROPHILS % 71.3 % (36.0-66.0); PLATELET COUNT, AUTOMATED 220 10^3/uL (150-450)
[2025-03-18] MEDS: ENOXAPARIN 40 MG/0.4 ML SYRINGE (J1650 PER 10MG) SC SCH (07:42)
[2025-03-18] MEDS: ACETAMINOPHEN 325 MG TAB PO PRN (07:42)
[2025-03-18] MEDS ORDERED: DEXTROSE 50% 50 ML SYRINGE IV PRN (07:55)
[2025-03-18] MEDS ORDERED: GLUCAGON INJ 1 MG VIAL SC PRN (07:55)
[2025-03-18] MEDS ORDERED: GLUCOSE 4 GM CHEW PO PRN (07:55)
[2025-03-18 08:11] LABS: CALCIUM LEVEL 8.4 MG/DL (8.5-10.1); CARBON DIOXIDE LEVEL 25 MMOL/L (20-31); CHLORIDE LEVEL 106 MMOL/L (98-107); CREATININE FOR GFR 0.50 MG/DL (0.55-1.30); GLOMERULAR FILTRATION RATE > 90.0 (>51); POTASSIUM SERUM 3.9 MMOL/L (3.5-5.1); SODIUM LEVEL 140 MMOL/L (136-145)
[2025-03-18] MEDS: INSULIN LISPRO (NovoLOG) PER UNIT SC SCH (08:11)
[2025-03-18 08:18] LABS: C REACTIVE PROTEIN QUANTITATIV 17.09 MG/DL (<1.0)
[2025-03-18] MEDS: cefTRIAXone SOD 2 GM in DEXTROSE 5% (D5W) ADV/MINI-BAG 50 ML IV SCH (12:42)
[2025-03-18 14:00] VITALS: BP 129/74; TEMP 97.3; O2SAT 98
[2025-03-18 19:40] VITALS: BP 105/69; TEMP 97.5; O2SAT 99
[2025-03-18 20:52] VITALS: BP 136/83
[2025-03-19 06:00] VITALS: BP 133/83; TEMP 97.2; O2SAT 97
[2025-03-19 08:11] LABS: BASO # 0.1 10^3/uL (0.0-0.2); BASO % 0.5 % (0.0-1.0); EOS # 0.2 10^3/uL (0.0-0.5); EOS % 2.2 % (0.0-3.0); LYMPH # 2.5 10^3/uL (1.5-5.0); LYMPH % 24.2 % (24.0-44.0); MONO # 0.7 10^3/uL (0.0-0.8); MONO % 6.5 % (2.0-8.0); NEUTROPHILS # 6.7 10^3/uL (1.5-8.5); NEUTROPHILS % 65.8 % (36.0-66.0); PLATELET COUNT, AUTOMATED 244 10^3/uL (150-450)
[2025-03-19 08:44] LABS: CALCIUM LEVEL 8.5 MG/DL (8.5-10.1); CARBON DIOXIDE LEVEL 28 MMOL/L (20-31); CHLORIDE LEVEL 105 MMOL/L (98-107); CREATININE FOR GFR 0.55 MG/DL (0.55-1.30); GLOMERULAR FILTRATION RATE > 90.0 (>51); POTASSIUM SERUM 3.9 MMOL/L (3.5-5.1); SODIUM LEVEL 142 MMOL/L (136-145)
[2025-03-19 08:48] LABS: C REACTIVE PROTEIN QUANTITATIV 14.52 MG/DL (<1.0)
[2025-03-19] MEDS ORDERED: DOXY100T PO (10:47)
[2025-03-19] MEDS ORDERED: CEFP200T PO (10:47)
== END 2025-03-19 14:05 | disposition home or self-care (01) | DRG 383 ==
LOC: M ED 07:54 → M ED INP 12:21 → M MS5PR 17:50
PROVIDERS: ADMIT Internal Medicine Nephrology; ATTEND Internal Medicine Nephrology
DX: L03.115 Cellulitis of right lower limb (principal); I10 Essential (primary) hypertension; E11.9 Type 2 diabetes mellitus without complications; E78.5 Hyperlipidemia, unspecified; K21.9 Gastro-esophageal reflux disease without esophagitis; J45.909 Unspecified asthma, uncomplicated; Z88.2 Allergy status to sulfonamides; Z88.5 Allergy status to narcotic agent; Z91.040 Latex allergy status; Z79.4 Long term (current) use of insulin; Z79.899 Other long term (current) drug therapy

== ENCOUNTER → 2025-03-27 | Outpatient (REF) | payer OTHER ==
[~2025-03-27] MED LIST changes: +ACET-907 PO; +ATOR40TA75 PO; +BASA100I SUBQ; +CEFP200T PO; +DOXY100T PO; +METF-838 PO; +OMEP40CA5 PO; +SEMA0.257 SUBQ
== END ==
LOC: M SFHCPLAZ 14:15
PROVIDERS: ATTEND Family Medicine
DX: R19.7 Diarrhea, unspecified (principal)

== ENCOUNTER → 2025-03-28 | Outpatient (REF) | payer OTHER | LOC: M SFHCPLAZ 09:01 | PROVIDERS: ATTEND Family Medicine | DX: Z53.9 Procedure and treatment not carried out, unspecified reason (principal); E78.5 Hyperlipidemia, unspecified ==

== ENCOUNTER → 2025-04-03 | Outpatient (REF) | payer OTHER | LOC: M SFHCPLAZ 12:02 | DX: R19.7 Diarrhea, unspecified (principal) ==

== ENCOUNTER → 2025-06-05 | Outpatient (CLI) | payer OTHER ==
[2025-06-05 11:46] LABS: BASO # 0.1 10^3/uL (0.0-0.2); BASO % 0.7 % (0.0-1.0); EOS # 0.4 10^3/uL (0.0-0.5); EOS % 4.0 % (0.0-3.0); LYMPH # 2.9 10^3/uL (1.5-5.0); LYMPH % 26.5 % (24.0-44.0); MONO # 0.6 10^3/uL (0.0-0.8); MONO % 5.3 % (2.0-8.0); NEUTROPHILS # 6.9 10^3/uL (1.5-8.5); NEUTROPHILS % 63.2 % (36.0-66.0); PLATELET COUNT, AUTOMATED 316 10^3/uL (150-450)
[2025-06-05 11:52] LABS: ALT/SGPT 10 U/L (7.0-40); AST/SGOT 12 U/L (<34); CALCIUM LEVEL 9.3 MG/DL (8.5-10.1); CARBON DIOXIDE LEVEL 30 MMOL/L (20-31); CHLORIDE LEVEL 103 MMOL/L (98-107); CREATININE FOR GFR 0.71 MG/DL (0.55-1.30); GLOMERULAR FILTRATION RATE > 90.0 (>51); POTASSIUM SERUM 4.5 MMOL/L (3.5-5.1); SODIUM LEVEL 142 MMOL/L (136-145)
[2025-06-05 12:25] LABS: CREATININE, URINE 67.2 MG/DL; MALB URINE SIEMENS 124.0 MG/L; MAU/CREAT RATIO 184.5 MCG/MG (0.0-30.0)
== END ==
LOC: M PLALAB 08:27
DX: Z02.1 Encounter for pre-employment examination (principal); I10 Essential (primary) hypertension

== ENCOUNTER → 2025-07-12 | Outpatient (CLI) | payer OTHER ==
[2025-07-12 11:07] LABS: CREATININE, URINE 74.4 MG/DL; MALB URINE SIEMENS 124.0 MG/L; MAU/CREAT RATIO 166.6 MCG/MG (0.0-30.0)
[2025-07-12 11:08] LABS: ESTIMATED AVERAGE GLUCOSE 148.0 MG/DL (60-110)
[2025-07-12 11:09] LABS: ALT/SGPT 11 U/L (7.0-40); AST/SGOT 13 U/L (<34); CALCIUM LEVEL 8.9 MG/DL (8.5-10.1); CARBON DIOXIDE LEVEL 29 MMOL/L (20-31); CHLORIDE LEVEL 103 MMOL/L (98-107); CREATININE FOR GFR 0.74 MG/DL (0.55-1.30); GLOMERULAR FILTRATION RATE > 90.0 (>51); POTASSIUM SERUM 4.6 MMOL/L (3.5-5.1); SODIUM LEVEL 141 MMOL/L (136-145)
== END ==
LOC: M PLALAB 09:13
DX: E11.9 Type 2 diabetes mellitus without complications (principal)